=== PATIENT | female | born 1960 | race Caucasian/White ===

== ENCOUNTER → 2017-06-20 | Outpatient (CLI) | payer BC, OTHER ==
[~2017-06-20] MED LIST: AGM875T PO; AMLO5TAB2 PO; ASP81TEC PO; ATOR10TA PO; ATOR10TA66 PO; Atorvastatin Calcium PO; BENZ100C18 PO; BISO1TAB6 PO; CEFP250T2; EST.1TD TOP; ESTRADIOL TOP; HSCO125 SL; LEVO500T69 PO; LEVO75TA6 PO; LVT.025T PO; METH4TAB PO; OMEG-12 PO; PANT40TA PO; PANT40TA3 PO; PNT40TEC PO; PRD20T PO; SERT50TA; TICA90TA PO; TRAM50TA2 PO; Ticagrelor PO
--- NOTE | 2017-06-20 11:03 | Diagnostic Imaging Report ---
PROCEDURE: CT chest without contrast. TECHNIQUE: Multiple contiguous axial images were obtained through the chest without the use of intravenous contrast. INDICATION: Long-term tobacco use. FINDINGS: There are no discrete pulmonary nodules masses or infiltrates. There is no pleural or pericardial fluid. There is calcified granuloma in the right middle lobe. There is mild emphysematous disease. No pneumothorax. There are coronary artery calcifications. The thoracic aorta is nonaneurysmal. There is some atherosclerotic calcification of the aorta. There is no pathologically enlarged adenopathy in the chest. The visualized intra-abdominal structures are unremarkable. The osseous structures are unremarkable. IMPRESSION: Coronary artery calcifications. Calcified granuloma in the right lung. No acute abnormality in the chest. Dictated by: Dictated on workstation # [id number]
--- NOTE | 2017-06-20 11:08 | Diagnostic Imaging Report ---
INDICATION: Screening. COMPARISON: 06/09/2016 back through 01/11/2011. TECHNIQUE: Screening digital mammography was performed bilaterally with a Computer Aided Detection (CAD) System. FINDINGS: There is a moderate amount of residual fibroglandular tissue bilaterally. There are a few benign type calcifications. There is no dominant mass, spiculated lesion, or suspicious calcification identified. The skin, nipples, and axillae are unremarkable. IMPRESSION: Benign findings. ACR BI-RADS Category 2: Benign findings. Result letter will be mailed to the patient. Note: At least 10% of breast cancer is not imaged by mammography. Dictated by: Dictated on workstation # [id number]
== END ==
LOC: RAD 07:54
PROVIDERS: ATTEND Nurse Practitioner Family
DX: Z12.31 Encounter for screening mammogram for malignant neoplasm of breast (principal); I25.10 Atherosclerotic heart disease of native coronary artery without angina pectoris; Z72.0 Tobacco use
CPT/HCPCS: 71250; 77067

== ENCOUNTER → 2018-02-23 | Outpatient (CLI) | payer BC, OTHER ==
[~2018-02-23] MED LIST changes: -AMLO5TAB2 PO; +AMLO5TAB7 PO
== END ==
LOC: CARD 10:24
PROVIDERS: ATTEND Internal Medicine Cardiovascular Disease
DX: I44.0 Atrioventricular block, first degree (principal); I25.10 Atherosclerotic heart disease of native coronary artery without angina pectoris; R07.9 Chest pain, unspecified; I10 Essential (primary) hypertension; E78.1 Pure hyperglyceridemia
CPT/HCPCS: 93306

== ENCOUNTER → 2018-02-26 | Outpatient (CLI) | payer BC, OTHER ==
[~2018-02-26] VITALS: Ht 165.1 cm; Wt 60.3 kg
[~2018-02-26] MED LIST changes: +CATHETER FLUSH 10 ML SYR IV PRN
[2018-02-26 09:54] VITALS: BP 160/82
--- NOTE | 2018-02-26 12:59 | STRESS TEST ---
DATE OF SERVICE: 02/26/2018 [facility] MY[facility]IEW STRESS TEST REPORT REFERRING PHYSICIAN: Dr. Aquino. Baseline heart rate is 78. Baseline blood pressure 104/79. Baseline EKG sinus rhythm with no ischemic changes. In summary, the patient was injected with 10.39 mCi of technetium-99 Myoview and the resting images were obtained. Then, the patient started exercising with a baseline heart rate, blood pressure and EKG mentioned above. The patient was able to exercise for a total of 7 minutes on standard Pascual protocol. With peak exercise level, EKG was showing no ischemic changes. Blood pressure at peak exercise level was 168/81. During recovery, heart rate and blood pressure returned to baseline. The resting and stress images were reviewed and compared in the short axis, horizontal long axis, and vertical long axis views. Review of the images showed breast attenuation with mild decreased uptake at the mid to apical inferior wall with mild reversibility. SSS is 5, SDS 4, TID value 1.08. On the gated images, the left ventricle appeared to be normal size with normal contractility. Calculated ejection fraction 68%. CONCLUSION: 1. Fair exercise tolerance, a total of 7 minutes on standard Pascual protocol, total of 8.5 METS achieving 86% of maximum expected heart rate. 2. Appropriate heart rate and blood pressure response to exercise returned to baseline during recovery. 3. No EKG changes with exercise. 4. Breast attenuation with mild ischemia at the mid to apical inferior wall. 5. Normal left ventricular size with normal contractility. Calculated ejection fraction 68%. Job ID: [id number] DocumentID: [id number] Dictated Date: 02/26/2018 11:59:32 Track Maintainer Date: 02/26/2018 12:58:58 Dictated By: MI BAILEY MD
== END ==
LOC: CARD 07:41
PROVIDERS: ATTEND Internal Medicine Cardiovascular Disease
DX: I44.0 Atrioventricular block, first degree (principal); I25.10 Atherosclerotic heart disease of native coronary artery without angina pectoris; I10 Essential (primary) hypertension; R07.9 Chest pain, unspecified; E78.1 Pure hyperglyceridemia
CPT/HCPCS: 78452; 93017

== ENCOUNTER → 2018-03-19 | Outpatient (CLI) | payer BC, OTHER ==
[~2018-03-19] MED LIST changes: -CATHETER FLUSH 10 ML SYR IV PRN
--- NOTE | 2018-03-19 11:59 | Diagnostic Imaging Report ---
CLINICAL INDICATION: Patient with hypothyroidism. COMPARISONS: None. FINDINGS: THYROID NODULES: None. THYROID GLAND: The thyroid gland is slightly heterogeneous, but is normal in size and shape. The right lobe measures 3.8 cm x 1.5 cm x 1.4 cm and the left lobe measures 3.1 cm x 1.2 cm x 1.1 cm in their three dimensions. ISTHMUS: The isthmus is unremarkable and measures approximately 1-2 mm in thickness. IMPRESSION: Slightly heterogeneous thyroid gland. Otherwise, thyroid gland is unremarkable. There are no thyroid nodules. Dictated by: Dictated on workstation # [id number]
== END ==
LOC: RAD 10:06
PROVIDERS: ATTEND Nurse Practitioner Family
DX: E03.9 Hypothyroidism, unspecified (principal); R63.4 Abnormal weight loss
CPT/HCPCS: 76536

== ENCOUNTER → 2018-06-29 | Outpatient (CLI) | payer BC, OTHER ==
--- NOTE | 2018-06-29 11:00 | Diagnostic Imaging Report ---
INDICATION: Routine screening. COMPARISON: 06/20/2017 and 06/09/2016. TECHNIQUE: 2D and 3D bilateral screening mammography was performed with CAD. FINDINGS: Scattered fibroglandular densities are identified bilaterally. No mass or malignant appearing microcalcifications are seen. The axillae are unremarkable. IMPRESSION: No findings suspicious for malignancy are identified. ACR BI-RADS Category 1: Negative. Result letter will be mailed to the patient. Note: At least 10% of breast cancer is not imaged by mammography. Dictated by: Dictated on workstation # [id number]
== END ==
LOC: RAD 08:07
PROVIDERS: ATTEND Nurse Practitioner Family
DX: Z12.31 Encounter for screening mammogram for malignant neoplasm of breast (principal)
CPT/HCPCS: 77067

== ENCOUNTER 2018-07-04 07:30 | Day surgery (SDC) | payer BC, OTHER ==
[2018-07-04] VITALS (11 sets, daily range): BP systolic 114–139; BP diastolic 74–87
[~2018-07-04] VITALS: Ht 167.6 cm; Wt 54.4 kg
[~2018-07-04 07:30] MED LIST changes: -AMLO5TAB7 PO; +AMLO5TAB9 PO
[2018-07-04] MEDS ORDERED: LIDOCAINE 1% INJ 20 ML 20 ML VIAL ONE (07:39)
[2018-07-04] MEDS ORDERED: NS IV 1000 ML 1,000 ML ONE ×2 (07:39→08:46)
[2018-07-04] MEDS ORDERED: HEParin (CATH LAB) 2,000 ML IV ONE (07:39)
[2018-07-04] MEDS ORDERED: NS IV 1000 ML 1,000 ML IV SCH ×2 (07:41→10:58)
[2018-07-04 08:11] LABS: HEMOGLOBIN 14.5 G/DL (11.5-16.0); MEAN PLATELET VOLUME 9.8 FL (7.4-10.4); RED BLOOD COUNT 5.03 10^6/uL (4.35-5.85); RED CELL DISTRIBUTION WIDTH 14.6 % (10.0-14.5); WHITE BLOOD COUNT 7.3 10^3/uL (4.3-11.0)
[2018-07-04 08:17] LABS: PROTHROMBIN TIME PATIENT 12.8 SEC (12.2-14.7)
[2018-07-04 08:26] LABS: ALANINE AMINOTRANSFERASE 8 U/L (0-55); ALKALINE PHOSPHATASE 104 U/L (40-136); BILIRUBIN,TOTAL 0.7 MG/DL (0.1-1.0); BUN/CREATININE RATIO 11; CALCIUM 9.4 MG/DL (8.5-10.1); CARBON DIOXIDE 26 MMOL/L (21-32); CHLORIDE 103 MMOL/L (98-107); CHOLESTEROL 141 MG/DL (< 200); CREATININE SERUM 0.81 MG/DL (0.60-1.30); GFR ESTIMATED > 60; GLUCOSE 109 MG/DL (70-105); HDL CHOLESTEROL 33 MG/DL (40-60); POTASSIUM 3.9 MMOL/L (3.6-5.0); SODIUM 139 MMOL/L (135-145); TOTAL PROTEIN 7.2 GM/DL (6.4-8.2); TRIGLYCERIDES 108 MG/DL (<150); VLDL CHOLESTEROL 22 MG/DL (5-40)
[2018-07-04] MEDS ORDERED: RT-ALBUINH IH (08:29)
[2018-07-04] MEDS ORDERED: IPRA3AMP31 IH (08:29)
[2018-07-04] MEDS ORDERED: FLU QUADRIvalent (5+ YOA) 2018-2019 (AFLURIA) 0.5 ML IM ONE (08:30)
[2018-07-04] MEDS ORDERED: ESCI10TA55 PO (08:30)
--- NOTE | 2018-07-04 08:31 | NUR ---
SPOKE TO PATIENT SHE BROUGHT ALL HER HOME MEDICATIONS IN AND STATED WHEN SHE TOOK THEM LAST.
--- NOTE | 2018-07-04 08:38 | Diagnostic Imaging Report ---
INDICATION: Pre-heart catheterization. TIME OF EXAM: 8:06 AM Correlation is made with prior study from 05/18/2016. FINDINGS: The heart size is stable. Lungs are clear. The pulmonary vascularity is normal. No infiltrate, effusion or pneumothorax is identified. IMPRESSION: No acute cardiopulmonary process is detected. Dictated by: Dictated on workstation # [id number]
--- NOTE | 2018-07-04 08:46 | Cardiac Procedure Note-CS/ASA ---
Pre-Procedure Note Pre-Op Procedure Note H&P Reviewed The H&P was reviewed, patient examined and no changes noted. Date H&P Reviewed: Jul 04, 2018 Time H&P Reviewed: 08:46 Conscious Sedation Pre-Proced Time 08:46 ASA Score 3 For ASA 3 and 4: Consider anesthesia and medical clearance. Also, for patients with a history of failed moderate sedation consider anesthesia. Airway Lungs Heart ASA score ASA 1: a normal healthy patient ASA 2: a patient with a mild systemic disease (mid diabetes, controlled hypertension, obesity x ASA 3: a patient with a severe systemic disease that limits activity (angina , COPD, prior Myocardial infarction) ASA 4: a patient with an incapacitating disease that is a constant threat to life (CHF, renal failure) ASA 5: a moribund patient not expected to survive 24 hrs. (ruptured aneurysm) ASA 6: a declared brain patient whose organs are being harvested. For emergent operations, add the letter E after the classification Mallampati Classification Grade 3 Sedation Plan Analgesia, Amnesia, Plan communicated to team members, Discussed options with patient/fam, Discussed risks with patient/fam The patient is an appropriate candidate to undergo the planned procedure, sedation, and anesthesia. The patient immediately re-assessed prior to indication. MI BAILEY MD Jul 04, 2018 08:46
[2018-07-04] MEDS ORDERED: MIDAZOLAM 5 MG/5 ML (VERSED) VIAL ONE (10:10)
[2018-07-04] MEDS ORDERED: fentaNYL INJECTION 100 MCG/2 ML AMP ONE (10:11)
[2018-07-04] MEDS ORDERED: HEParin 1000 UNIT/ML (10ML VIAL) FOR BOLUS ONE (10:46)
[2018-07-04] MEDS ORDERED: ADENOSINE 3 MG/1 ML (ADENOSCAN) 30ML VIAL IV ONE (10:46)
[2018-07-04] MEDS ORDERED: RT-ALBUTEROL SULF 2.5 MG/3 ML PRE-MIX VIAL ONE (10:59)
[2018-07-04] MEDS ORDERED: PATIENT MAY USE OWN MEDS, ALL PO SCH (11:00)
--- NOTE | 2018-07-04 11:02 | Discharge Inst-Post CATH ---
Discharge Inst-CATH/EP Post Cardiac Cath/EP D/C Inst Follow Up/Plan Appointment with Dr. Bello's office in 2-4 weeks CARDIAC CATH DISCHARGE INSTRUCTIONS *Hold Metformin for 48 hours post heart cath. ACTIVITY * Go Home directly and rest. * Limit activity of the leg (or wrist if it was used) for 7 days including aerobics, swimming, jogging, bicycling, etc. * Restrict stair-climbing for 7 days if possible, if not, climb up with your non -cath leg, then bring together on the same step. * Avoid lifting, pushing, pulling or excessive movement of the affected extremity for 7 days. * Customary sexual activity may be resumed after 2 days-use caution not to use a position that strains or causes pain to the affected extremity. * No driving for 24 hours. * NO SMOKING. * Avoid straining for bowel movements for 7 days. * Gentle walking on level ground is allowed. * Returning to work will depend on the type of procedure and the results. Your doctor will discuss this with you. CALL YOUR DOCTOR FOR ANY OF THE FOLLOWING: *If bleeding from the puncture site occurs- Apply gentle pressure to site with clean cloth and call your doctor or EMS. * If a knot or lump forms under the skin, increases in size, or causes pain. * If bruising appears to be worsening or moving further down your leg instead of disappearing. * Temperature above 101 F. CARE OF YOUR GROIN INCISION; * Bruising or purple discoloration of the skin near the puncture site is common. * You may shower only, no bathtub bathing for 5 days. Be careful to avoid slipping as your leg may feel stiff. * If a closure device was used on your femoral artery, please see the attached guide regarding care of the device and your leg. * Leave the dressing on, until removed by office staff. CARE OF YOUR WRIST INCISION; * Bruising or purple discoloration of the skin near the puncture site is common. * You may shower. * DO NOT submerge wrist. * Leave dressing on, until removed by office staff.. MI BELLO MD Jul 04, 2018 11:02
--- NOTE | 2018-07-04 11:06 | Cardiac Cath Report ---
Cardiac Cath Report Physician (s)/T[employer] Mounter (s) Physician MI BAILEY MD Pre-Procedure Diagnosis Pre-Procedure Diagnosis: coronary artery disease Post-Procedure Note Procedure Start Date: Jul 04, 2018 Name of Procedure: coronary artery disease FFR to the right coronary artery Findings/Procedure Note PROCEDURE NOTE: After explaining the procedure to the patient, all pros and cons were explained , all questions were answered. The patient signed the consent and then she was placed on the cardiac catheterization laboratory. Groin was prepped SL fashion local anesthesia was used. Sheath placed in the right femoral artery. Ga right and left catheter were used to access the coronary system. Pigtail was used to access the left ventricular cavity. Left ventriculogram was not done, pressure was measured Patient was given 4000 units of heparin, had a lesion in the right Korri artery , I advanced FR guide then pressure wire was placed in the distal right coronary artery, I used Adenosine challenge, FFR at baseline and after the challenge was about 0.94. The wire and the guide was removed without any complication At the end of the procedure the sheath was removed. Closure device was used FINDINGS: Hemodynamics LV 97/8, end-diastolic pressure of 8 Aorta 97/57 mean of 71 ANATOMY: Left Main is free of obstructive disease Left Anterior Descending is [id number] disease nonobstructive disease Left Circumflex has patent stent in the obtuse marginal branch with mild disease distally nonobstructive disease Right Coronory Artery is small to moderate in size with moderate lesion, FFR was 0.94 after Adenosine a challenge LV Gram was not done, pressure was measured CONCLUSION: 1. Mild to moderate stenosis in the midright coronary artery, nonobstructive disease, FFR was 0.94 after Adenosine challenge 2. Mild to moderate disease in the LAD and circumflex artery with patent stent in the obtuse marginal branch 3. Normal left ventricular end-diastolic pressure DISCUSSION AND RECOMMENDATION: medical therapy is recommended no intervention is needed Anesthesia Type: Conscious Sedation Estimated blood loss (mL): 25 ml Contrast Amount: 68 ml Total Radiation Dose: 168 mGy Post-Procedure Diagnosis Post-operative diagnosis: Coronary artery disease Hypertension Hyperlipidemia MI BAILEY MD Jul 04, 2018 11:06
[2018-07-04] MEDS ORDERED: RT-ALBUTEROL SULF 2.5 MG/3 ML PRE-MIX VIAL INH SCH (11:30)
== END 2018-07-04 17:00 | disposition home or self-care (01) ==
LOC: CATH 07:30
PROVIDERS: ATTEND Internal Medicine Cardiovascular Disease
DX: I25.10 Atherosclerotic heart disease of native coronary artery without angina pectoris (principal); I10 Essential (primary) hypertension; E78.2 Mixed hyperlipidemia; E78.1 Pure hyperglyceridemia; I65.29 Occlusion and stenosis of unspecified carotid artery; F17.210 Nicotine dependence, cigarettes, uncomplicated; Z79.899 Other long term (current) drug therapy; Z79.82 Long term (current) use of aspirin; Z95.5 Presence of coronary angioplasty implant and graft
CPT/HCPCS: 36415; 71045; 80053; 80061; 85027; 85610; 85730; 87081; 93458

== ENCOUNTER → 2018-07-30 | Outpatient (CLI) | payer BC, OTHER ==
[~2018-07-30] MED LIST changes: +ESCI10TA55 PO; +IOHEXOL 350 MG/ML 100 ML (OMNIPAQUE 350) VIAL IV ONE; +IPRA3AMP31 IH; +NS 100 ML (IVPB) BAG IV ONE; +RECEIVED CONTRAST (Hold Metformin) IV SCH; +RT-ALBUINH IH; +RT-ALBUTEROL SULF 2.5 MG/3 ML PRE-MIX VIAL INH ONE
[2018-07-30 12:31] LABS: BUN/CREATININE RATIO 8; CREATININE SERUM 0.83 MG/DL (0.60-1.30); GFR ESTIMATED > 60
--- NOTE | 2018-07-30 14:59 | Diagnostic Imaging Report ---
PROCEDURE: CT chest with contrast only. TECHNIQUE: Multiple contiguous axial images were obtained through the chest after administration of intravenous contrast. INDICATION: Difficulty breathing and tobaccoism. Study correlated with nonenhanced chest CT of 06/20/2017. FINDINGS: Centrilobular emphysematous changes chronic. Calcified benign subpleural granuloma in the left upper lobe chronic. Minute 2 mm noncalcified subpleural nodule in the left upper lobe unchanged. No new dominant or suspicious pulmonary nodule. No evidence for pneumonia or edema. No effusion or pneumothorax. The aorta is nonaneurysmal. Coronary atherosclerotic vascular calcifications chronic. No pleural or pericardial effusion. The upper abdomen appears nonacute. IMPRESSION: Centrilobular emphysema, nonaneurysmal atherosclerosis, and benign subpleural micronodules stable. No suspicious mass, pneumonia, effusion, or acute abnormality. Dictated by: Dictated on workstation # [id number]
== END ==
LOC: RAD 11:58
PROVIDERS: ATTEND Nurse Practitioner Family
DX: J43.2 Centrilobular emphysema (principal); I25.10 Atherosclerotic heart disease of native coronary artery without angina pectoris; R91.8 Other nonspecific abnormal finding of lung field; F17.200 Nicotine dependence, unspecified, uncomplicated; J98.4 Other disorders of lung; J18.9 Pneumonia, unspecified organism
CPT/HCPCS: 36415; 71260; 82565; 84520; 94060; 94726; 94729

== ENCOUNTER → 2019-02-26 | Outpatient (CLI) | payer BC, OTHER ==
[~2019-02-26] MED LIST changes: -IOHEXOL 350 MG/ML 100 ML (OMNIPAQUE 350) VIAL IV ONE; -NS 100 ML (IVPB) BAG IV ONE; -RECEIVED CONTRAST (Hold Metformin) IV SCH; -RT-ALBUTEROL SULF 2.5 MG/3 ML PRE-MIX VIAL INH ONE
--- NOTE | 2019-02-26 17:14 | Diagnostic Imaging Report ---
INDICATION: Postmenopausal female. COMPARISON: None. FINDINGS: AP Spine L1-L4: [BMD (g/cm2): 1.230] [T-Score: 0.2] [Z-Score: 1.8] [BMD Previous: N/A] [BMD % Change: N/A] LT Hip Neck: [BMD (g/cm2): 1.157] [T-Score: 0.9] [Z-Score: 2.3] LT Hip Total: [BMD (g/cm2):1.121] [T-Score:0.9] [Z-Score: 2.1] [BMD Previous: N/A] [BMD % Change: N/A] RT Hip Neck: [BMD (g/cm2):1.027] [T-Score:-0.1] [Z-Score:1.4] RT Hip Total: [BMD (g/cm2):1.048] [T-score:0.3] [Z-Score:1.5] [BMD Previous:N/A] [BMD % Change:N/A] *Indicates significant change from prior examination based on 95% confidence level. World Health Organization criteria for BMD interpretation classify patients as Normal (T-score at or above -1.0), Osteopenic (T-score between -1.0 and -2.5) or Osteoporotic (T-score at or below -2.5). LIMITATIONS AND MODIFICATION: None. FRACTURE RISK (FRAX SCORE): Not applicable IMPRESSION: 1. Normal Bone mineral density. 2. Baseline examination. 3. See below National Osteoporosis Foundation guidelines on when to potentially initiate pharmacologic therapy. Based on the National Osteoporosis Foundation Guidelines, pharmacologic treatment should be initiated in any of the following, unless clinical conditions suggest otherwise: * Any patient with prior fragility fracture of the hip or vertebrae. A spine fracture indicates 5X risk for subsequent spine fracture and 2X risk for subsequent hip fracture. * Osteoporosis (T-score <-2.5). * Postmenopausal women and men age 50 and older with low bone mass/osteopenia (T-score between -1.0 and -2.5) by DXA and 10-year major osteoporotic fracture greater than 20% or a 10-year probability of hip fracture greater than 3%. These fracture risks are supplied above in the FRAX score, if applicable. * Clinician judgement and/or patient preferences may indicate treatment for people with 10-year fracture probabilities above or below these levels. Dictated by: Dictated on workstation # [id number]
== END ==
LOC: RAD 10:01
PROVIDERS: ATTEND Orthopaedic Surgery
DX: M81.0 Age-related osteoporosis without current pathological fracture (principal); Z78.0 Asymptomatic menopausal state
CPT/HCPCS: 77080

== ENCOUNTER 2019-04-02 16:06 | Observation (INO) | payer BC, OTHER ==
[~2019-04-02] VITALS: Ht 167.7 cm; Wt 56.0 kg
[2019-04-02] MEDS ORDERED: RT-ALBUTEROL/IPRATROPIUM 3 ML (DUONEB) VIAL ONE (16:16)
[2019-04-02 16:40] LABS: BASOPHILS # (AUTO) 0.1 10^3/uL (0.0-0.1); BASOPHILS % (AUTO) 0 % (0-10); EOSINOPHILS # (AUTO) 0.3 10^3/uL (0.0-0.3); EOSINOPHILS % (AUTO) 2 % (0-10); HEMATOCRIT 45 % (35-52); HEMOGLOBIN 15.1 G/DL (11.5-16.0); LYMPHOCYTES # (AUTO) 2.8 X 10^3 (1.0-4.0); LYMPHOCYTES % (AUTO) 17 % (12-44); MEAN CORPUSCULAR HEMOGLOBIN 30 PG (25-34); MEAN CORPUSCULAR HGB CONC 34 G/DL (32-36); MEAN CORPUSCULAR VOLUME 89 FL (80-99); MONOCYTES # (AUTO) 0.7 X 10^3 (0.0-1.0); MONOCYTES % (AUTO) 4 % (0-12); NEUTROPHILS # (AUTO) 12.7 X 10^3 (1.8-7.8); NEUTROPHILS % (AUTO) 77 % (42-75); PLATELET COUNT 363 10^3/uL (130-400); RED CELL DISTRIBUTION WIDTH 14.4 % (10.0-14.5); WHITE BLOOD COUNT 16.6 10^3/uL (4.3-11.0)
[2019-04-02 16:57] LABS: ALANINE AMINOTRANSFERASE 12 U/L (0-55); ALBUMIN 4.2 GM/DL (3.2-4.5); ALKALINE PHOSPHATASE 133 U/L (40-136); BILIRUBIN,TOTAL 0.5 MG/DL (0.1-1.0); BUN/CREATININE RATIO 10; CALCIUM 9.8 MG/DL (8.5-10.1); CARBON DIOXIDE 25 MMOL/L (21-32); CHLORIDE 100 MMOL/L (98-107); CREATININE SERUM 0.82 MG/DL (0.60-1.30); GFR ESTIMATED > 60; GLUCOSE 122 MG/DL (70-105); POTASSIUM 3.7 MMOL/L (3.6-5.0); SODIUM 139 MMOL/L (135-145); TOTAL PROTEIN 7.6 GM/DL (6.4-8.2)
--- NOTE | 2019-04-02 17:02 | Diagnostic Imaging Report ---
INDICATION: Difficulty breathing and shortness of air with chest pain. TIME OF EXAM: 04:55 p.m. Correlation is made with prior chest from 07/04/2018. FINDINGS: There is a tiny nodule in the left upper lung suggestive of a granuloma. No infiltrates are detected. No effusion or pneumothorax is seen. The heart size is normal. IMPRESSION: No acute cardiopulmonary process is detected. Dictated by: Dictated on workstation # [id number]
[2019-04-02 17:24] LABS: BAND NEUTROPHILS 4 %; EOSINOPHILS % (MANUAL) 1 %; LYMPHOCYTES % (MANUAL) 18 %; MONOCYTES % (MANUAL) 4 %; NEUTROPHILS % (MANUAL) 73 %; RBC MORPH NORMAL
[2019-04-02] MEDS ORDERED: methylPREDNISolone 125 MG (Solu-MEDROL) VIAL IVP ONE (17:45)
--- NOTE | 2019-04-02 17:48 | ED Cough/URI ---
General Chief Complaint: Respiratory Problems Stated Complaint: SOA CHEST PAIN Nursing Triage Note: Pt c/o SOA and CP that began this morning. Pt also c/o productive cough. Mucous is thick and yellow. 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 Pt R arm in brace pt reports due to recent surgery. Sepsis Screen: No Definite Risk Source: patient, family Exam Limitations: no limitations History of Present Illness Date Seen by Provider: Apr 02, 2019 Time Seen by Provider: 16:00 Initial Comments This 58-year-old white female presents with history of productive cough of yellow sputum. Patient's symptoms again this morning. Patient has had associated shortness of breath. Her chest hurts when she coughs. Patient is using multiple breathing treatments prior to presentation Jensen Ricardo with little improvement. Patient states that she requires steroids when her COPD is exacerbated as it is today. Allergies and Home Medications Allergies Coded Allergies: Cephalosporins (Verified Allergy, Severe, EDEMA, 07/21/14) tetracycline (Verified Allergy, Unknown, SUN STROKE, 07/21/14) Home Medications Albuterol Sulfate 1 Puff Puff, 2 PUFF IH Q4H PRN for SHORTNESS OF BREATH, (Reported) 1 PUFF = 90 MCG Amlodipine Besylate 5 Mg Tablet, 5 MG PO HS, (Reported) Aspirin 81 Mg Tabec, 81 MG PO HS, (Reported) Atorvastatin Calcium 10 Mg Tablet, 10 MG PO HS, (Reported) Escitalopram Oxalate 10 Mg Tablet, 5 MG PO HS, (Reported) Ipratropium/Albuterol Sulfate 3 Ml Ampul.neb, 3 ML IH Q6H PRN for SHORTNESS OF BREATH, (Reported) Levothyroxine Sodium 75 Mcg Tablet, 75 MCG PO DAILY, (Reported) Pantoprazole Sodium 40 Mg Tablet.dr, 40 MG PO HS, (Reported) Patient Home Medication List Home Medication List Reviewed: Yes Review of Systems Review of Systems Constitutional: No chills, No fever EENTM: no symptoms reported Respiratory: see HPI, cough, short of breath Cardiovascular: No chest pain, No palpitations Gastrointestinal: No abdominal pain, No nausea Genitourinary: No dysuria, No frequency Musculoskeletal: No back pain Skin: No change in color Psychiatric/Neurological: No Symptoms Reported Hematologic/Lymphatic: No Symptoms Reported Immunological/Allergic: no symptoms reported Past Xjgrgyv-Jiznos-Cjfevd Hx Past Med/Social Hx: Reviewed Nursing Past Med/Soc Hx Patient Social History Alcohol Use: Rarely Uses Number of Drinks Today: Alcohol Beverage of Choice: Wine Recreational Drug Use: No Smoking Status: Current Everyday Smoker Type Used: Cigarettes Recent Foreign Travel: No Contact w/Someone Who Travel: No Recent Infectious Disease Expo: No Physical Abuse: No Sexual Abuse: No Immunizations Up To Date Date of Pneumonia Vaccine: Jun 12, 2011 Date of Influenza Vaccine: Mar 12, 2014 Seasonal Allergies Seasonal Allergies: No Past Medical History Surgeries: Yes (CATH AND STENT, L KNEE SCOPE, LEFT ARM SHORTENED, LEFT TOE, right shoulder) Adenoidectomy, Appendectomy, Coronary Stent, Gallbladder, Hysterectomy, Orthopedic, Tonsillectomy Respiratory: Yes COPD Cardiac: Yes Coronary Artery Disease, Hypertension Neurological: No Reproductive Disorders: No Female Reproductive Disorders: Denies Sexually Transmitted Disease: No HIV/AIDS: No Genitourinary: No Gastrointestinal: Yes Diverticulosis Musculoskeletal: No Endocrine: Yes (THYROID PROBLEMS) Cancer: Yes (skin) Did You Recieve Any Treatments: No Psychosocial: No Integumentary: No Blood Disorders: No Family Medical History Stroke 03 MOTHER No Pertinent Family Hx Physical Exam Vital Signs - First Documented 04/02/19 16:06 Temp 36.8 Pulse 107 Resp 30 B/P (MAP) 123/82 (96) Pulse Ox 82 O2 Delivery Room Air O2 Flow Rate 5.00 Capillary Refill : Less Than 3 Seconds Height: 5'6.00" Weight: 120lbs. 0.0oz. [id number]; 19.00 BMI Method:Stated General Appearance: mild distress, cachetic Eyes: Bilateral Eye Normal Inspection HEENT: normal ENT inspection Neck: supple Respiratory: decreased breath sounds Cardiovascular: regular rate, rhythm Gastrointestinal: normal bowel sounds Extremities: normal range of motion, non-tender Neurologic/Psychiatric: no motor/sensory deficits, normal mood/affect Skin: normal color, warm/dry Progress/Results/Core Measures Suspected Sepsis Recent Fever Within 48 Hours: No Infection Criteria Present: None New/Unexplained Altered Menta: No Sepsis Screen: No Definite Risk SIRS Temperature: Pulse: 107 Respiratory Rate: 30 Laboratory Tests 04/02/19 16:20: White Blood Count 16.6H Blood Pressure 123 /82 Mean: 96 Laboratory Tests 04/02/19 16:20: Creatinine 0.82, Platelet Count 363, Total Bilirubin 0.5 Results/Orders Lab Results Laboratory Tests Test 04/02/19 16:20 Range/Units White Blood Count 16.6 H 4.3-11.0 10^3/uL Red Blood Count 5.01 4.35-5.85 10^6/uL Hemoglobin 15.1 11.5-16.0 G/DL Hematocrit 45 35-52 % Mean Corpuscular Volume 89 80-99 FL Mean Corpuscular Hemoglobin 30 25-34 PG Mean Corpuscular Hemoglobin Concent 34 32-36 G/DL Red Cell Distribution Width 14.4 10.0-14.5 % Platelet Count 363 130-400 10^3/uL Mean Platelet Volume 10.0 7.4-10.4 FL Neutrophils (%) (Auto) 77 H 42-75 % Lymphocytes (%) (Auto) 17 12-44 % Monocytes (%) (Auto) 4 0-12 % Eosinophils (%) (Auto) 2 0-10 % Basophils (%) (Auto) 0 0-10 % Neutrophils # (Auto) 12.7 H 1.8-7.8 X 10^3 Lymphocytes # (Auto) 2.8 1.0-4.0 X 10^3 Monocytes # (Auto) 0.7 0.0-1.0 X 10^3 Eosinophils # (Auto) 0.3 0.0-0.3 10^3/uL Basophils # (Auto) 0.1 0.0-0.1 10^3/uL Neutrophils % (Manual) 73 % Lymphocytes % (Manual) 18 % Monocytes % (Manual) 4 % Eosinophils % (Manual) 1 % Band Neutrophils 4 % Blood Morphology Comment NORMAL Sodium Level 139 135-145 MMOL/L Potassium Level 3.7 3.6-5.0 MMOL/L Chloride Level 100 98-107 MMOL/L Carbon Dioxide Level 25 21-32 MMOL/L Anion Gap 14 5-14 MMOL/L Blood Urea Nitrogen 8 7-18 MG/DL Creatinine 0.82 0.60-1.30 MG/DL Estimat Glomerular Filtration Rate > 60 BUN/Creatinine Ratio 10 Glucose Level 122 H 70-105 MG/DL Calcium Level 9.8 8.5-10.1 MG/DL Corrected Calcium 9.6 8.5-10.1 MG/DL Total Bilirubin 0.5 0.1-1.0 MG/DL Aspartate Amino Transf (AST/SGOT) 11 5-34 U/L Alanine Aminotransferase (ALT/SGPT) 12 0-55 U/L Alkaline Phosphatase 133 40-136 U/L Total Protein 7.6 6.4-8.2 GM/DL Albumin 4.2 3.2-4.5 GM/DL My Orders Orders - ASHELY MORILLO MD Albuterol/Ipra Inhalation Soln (Duoneb I (04/02/19 16:16) Cbc With Automated Diff (04/02/19 16:35) Comprehensive Metabolic Panel (04/02/19 16:35) Chest 1 View, Ap/Pa Only (04/02/19 16:35) Manual Differential (04/02/19 16:20) Methylprednisolone Sod Succ (Solu-Medrol (04/02/19 17:45) Medications Given in ED Current Medications Medications Dose Ordered Sig/Gerry Route Start Time Stop Time Status Last Admin Dose Admin Albuterol/ Ipratropium 3 ml STK-MED ONCE .ROUTE 04/02/19 16:16 04/02/19 16:17 DC 04/02/19 16:19 3 ML Vital Signs/I&O 04/02/19 04/02/19 04/02/19 16:06 16:06 16:19 Temp 36.8 Pulse 107 Resp 30 B/P (MAP) 123/82 (96) Pulse Ox 82 94 95 O2 Delivery Room Air Nasal Cannula Nasal Cannula O2 Flow Rate 5.00 5.00 Capillary Refill : Less Than 3 Seconds Blood Pressure Mean: 96 Progress Note : Time: 17:47 Progress Note The patient was somewhat improved with a.m. DuoNeb treatment. She received 125 mg of Solu-Medrol. She received 500 mg of Zithromax IV. Patient's chest x-ray failed to demonstrate evidence of acute infiltrate. The patient was seen improved with her supplemental oxygen and treatment in the emergency department. I talked with Dr. Evans who was kind enough to admit the patient. Departure Communication (Admissions) Time/Spoke to Admitting Phy: 17:49 Dr. Evans Impression Primary Impression: Acute exacerbation of COPD with asthma Disposition: ADMITTED INPATIENT Condition: Improved Admissions Decision to Admit Reason: Admit from ER (General) Decision to Admit/Date: Apr 02, 2019 Time/Decision to Admit Time: 17:49 Departure-Patient Inst. Referrals: PATTI HATFIELD DO (PCP/Family) Primary Care Physician ASHELY MORILLO MD Apr 02, 2019 17:48
[2019-04-02 19:35] VITALS: BP 128/76
--- NOTE | 2019-04-02 19:35 | NUR ---
RISA HI admitted to room 416-1, with an admitting diagnosis of COPD EXACERBATION, on 04/02/19 from [place] via WHEELCHAIR, accompanied by STAFF.RISA HI introduced to surroundings, call light, bed controls, phone, TV, temperature control, lights, meal times, smoking policy, visitor policy, side rail policy, bathrooms and showers. Patient Rights given to patient in the handbook. RISA HI verbalizes understanding that [facility] is not responsible for the loss or damage to any personal effects or valuables that are kept in the patients posession during their hospitalization.
[2019-04-02] MEDS ORDERED: NS IV 1000 ML 1,000 ML ONE (19:44)
[2019-04-02] MEDS ORDERED: CATHETER FLUSH 10 ML SYR IV PRN (20:00)
[2019-04-02] MEDS ORDERED: RT-ALBUTEROL/IPRATROPIUM 3 ML (DUONEB) VIAL IH PRN ×2 (20:00)
[2019-04-02] MEDS ORDERED: AZITHROMYCIN 500 MG/NS 250 ML IVPB IV SCH ×2 (20:00)
[2019-04-02] MEDS ORDERED: NS IV 1000 ML 1,000 ML IV SCH (20:00)
[2019-04-03] VITALS (7 sets, daily range): BP systolic 112–125; BP diastolic 60–77
[2019-04-03] MEDS: methylPREDNISolone 125 MG (Solu-MEDROL) VIAL IV SCH ×2 (00:10→06:40)
[2019-04-03] MEDS: RT-ALBUTEROL/IPRATROPIUM 3 ML (DUONEB) VIAL IH SCH ×6 (03:04→22:35)
[2019-04-03 05:38] LABS: BASOPHILS % (AUTO) 0 % (0-10); EOSINOPHILS % (AUTO) 0 % (0-10); HEMATOCRIT 44 % (35-52); HEMOGLOBIN 14.5 G/DL (11.5-16.0); LYMPHOCYTES # (AUTO) 0.7 X 10^3 (1.0-4.0); LYMPHOCYTES % (AUTO) 7 % (12-44); MEAN CORPUSCULAR HEMOGLOBIN 30 PG (25-34); MEAN CORPUSCULAR HGB CONC 33 G/DL (32-36); MEAN CORPUSCULAR VOLUME 90 FL (80-99); MEAN PLATELET VOLUME 10.1 FL (7.4-10.4); MONOCYTES % (AUTO) 0 % (0-12); NEUTROPHILS # (AUTO) 9.8 X 10^3 (1.8-7.8); NEUTROPHILS % (AUTO) 93 % (42-75); PLATELET COUNT 301 10^3/uL (130-400); RED CELL DISTRIBUTION WIDTH 13.9 % (10.0-14.5); WHITE BLOOD COUNT 10.6 10^3/uL (4.3-11.0)
[2019-04-03 06:06] LABS: ALANINE AMINOTRANSFERASE 11 U/L (0-55); ALKALINE PHOSPHATASE 141 U/L (40-136); BILIRUBIN,TOTAL 0.4 MG/DL (0.1-1.0); BUN/CREATININE RATIO 13; CALCIUM 9.4 MG/DL (8.5-10.1); CARBON DIOXIDE 25 MMOL/L (21-32); CHLORIDE 103 MMOL/L (98-107); CREATININE SERUM 0.72 MG/DL (0.60-1.30); GFR ESTIMATED > 60; GLUCOSE 207 MG/DL (70-105); POTASSIUM 3.7 MMOL/L (3.6-5.0); SODIUM 139 MMOL/L (135-145)
[2019-04-03] MEDS ORDERED: RT-ALBUINH INH (09:44)
[2019-04-03] MEDS ORDERED: ALBU2.5V4 NEB (09:44)
[2019-04-03] MEDS ORDERED: TERI202.4P SC (09:44)
[2019-04-03] MEDS ORDERED: FLUT1BLS3 INH (09:44)
[2019-04-03] MEDS ORDERED: CNC1KV IM (09:47)
[2019-04-03] MEDS ORDERED: CHOL20003 PO (09:47)
[2019-04-03] MEDS ORDERED: CALC-676 PO (09:48)
[2019-04-03] MEDS ORDERED: ASPI-983 PO (09:51)
[2019-04-03] MEDS ORDERED: LEVO75TA6 PO (09:59)
[2019-04-03] MEDS ORDERED: ATOR20TA66 PO (09:59)
--- NOTE | 2019-04-03 10:01 | NUR ---
SPOKE WITH THE PATIENT ABOUT HER MEDICATIONS. SHE KNOWS WHAT SHE TAKES EACH MEDICATION FOR BUT SHE DOES NOT KNOW THE NAME OF THE MED OR THE STRENGTH. SHE LISTED WHAT SHE TAKES, I COMPARED THEM WITH WHAT CLAUDIO FILLS ON THE EXT MED HX. 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 I CALLED DR. CRUZ'S OFFICE FOR A LIST OF THOSE MEDICATIONS. ON SITE: 03-06-19 ATORVASTATIN 20MG (TAKES AT HS, WAS INCREASED FROM 10MG) 03-06-19 PROTONIX 40MG 1/2 DAILY (TAKES AT HS) 03-06-19 LEVOTHYROXINE 75MCG DAILY 03-06-19 B12 INJECTION (WAS SUPPOSED TO RECEIVE AGAIN TODAY BUT IS IN HOSPITAL) 01-30-19 AMLODIPINE 5MG DAILY (TAKES AT HS) THEY STATE THEY NORMALLY DISPENSE 90 DAY SUPPLIES OTC MEDS: ASPIRIN 81MG HS VITAMIN D DAILY CALCIUM +D 2 HS
[2019-04-03] MEDS ORDERED: PATIENT MAY USE OWN MED,SINGLE MED PO SCH (10:45)
--- NOTE | 2019-04-03 11:13 | History & Physical-Hospitalist ---
History of Present Illness HPI/Chief Complaint Pt is a 58yoCF with a PMH of COPD, CAD, HTN, HLD who presented to the ER with a CC of shortness of breath and cough. She states this is similar to her previous episodes of COPD. She has never needed to be hospitalized due to this. She was found to be hypoxic on arrival to the ER despite attempting home breathing treatments. She was placed on oxygen and started on IV steroids and her symptoms have improved dramatically. She has not been febrile but her has been sick with a cold. She also continues to smoke 1ppd. Source: patient Date Seen 04/03/19 Time Seen by a Provider: 10:30 Attending Physician Maria Del Rosario Evans MD PCP Marin Aquino DO Referring Physician Date of Admission Apr 02, 2019 at 17:40 Home Medications & Allergies Home Medications Reviewed patient Home Medication Reconciliation performed by pharmacy medication reconciliations master fire control technician and/or nursing. Patients Allergies have been reviewed. Allergies Allergies Coded Allergies Cephalosporins (Verified Allergy, Severe, EDEMA, 07/21/14) tetracycline (Verified Allergy, Unknown, SUN STROKE, 07/21/14) Past Rbmntlx-Syzdcf-Oaasin Hx Past Med/Social Hx: Reviewed Nursing Past Med/Soc Hx Patient Social History Marrital Status: Employed/Student: employed Alcohol Use: Rarely Uses Alcohol Beverage of Choice: Wine Recreational Drug Use: No Smoking Status: Current Everyday Smoker Type Used: Cigarettes Recent Foreign Travel: No Contact w/other who traveled: No Recent Infectious Disease Expo: No Immunizations Up To Date Date of Pneumonia Vaccine: Jun 12, 2011 Date of Influenza Vaccine: Mar 29, 2019 Seasonal Allergies Seasonal Allergies: No Past Medical History Surgeries: Adenoidectomy, Appendectomy, Coronary Stent, Gallbladder, Hysterectomy, Orthopedic, Tonsillectomy Cardiac: Coronary Artery Disease, Hypertension Reproductive: No Sexually Transmitted Disease: No HIV/AIDS: No Female Reproductive Disorders: Denies Gastrointestinal: Diverticulosis Did You Recieve Any Treatments: No History of Blood Disorders: No Family History Reviewed Nursing Family Hx Stroke 03 MOTHER CVA, Renal Disease Review of Systems Constitutional: No chills, No fever EENTM: no symptoms reported Respiratory: cough, dyspnea on exertion; No hemoptysis; phlegm, short of breath, wheezing Cardiovascular: chest pain (with coughing) Gastrointestinal: no symptoms reported Genitourinary: no symptoms reported Musculoskeletal: no symptoms reported Skin: no symptoms reported Psychiatric/Neurological: No Symptoms Reported Physical Exam Physical Exam Vital Signs Vital Signs - First Documented 04/02/19 16:06 Temp 36.8 Pulse 107 Resp 30 B/P (MAP) 123/82 (96) Pulse Ox 82 O2 Delivery Room Air O2 Flow Rate 5.00 Capillary Refill : Less Than 3 SecondsLess Than 3 Seconds Height, Weight, BMI Height: 5'6.00" Weight: 120lbs. 0.0oz. 54.652143ea; 19.52 BMI Method:Stated General Appearance: No Apparent Distress, WD/WN HEENT: PERRL/EOMI, Moist Mucous Membranes; No Scleral Icterus (L), No Scleral Icterus (R) Neck: Normal Inspection, Supple Respiratory: No Accessory Muscle Use, No Respiratory Distress, Wheezing Cardiovascular: Regular Rate, Rhythm, No Murmur Gastrointestinal: Normal Bowel Sounds, Non Tender, Soft Extremity: Normal Capillary Refill, No Calf Tenderness, No Pedal Edema Neurologic/Psychiatric: Alert, Oriented x3, Normal Mood/Affect Skin: Normal Color, Warm/Dry Results Results/Procedures Labs Laboratory Tests 04/02/19 16:20 04/03/19 04:40 Patient resulted labs reviewed. Imaging: Reviewed Imaging Report Imaging Date of Exam: 04/02/19 CHEST 1 VIEW, AP/PA ONLY INDICATION: Difficulty breathing and shortness of air with chest pain. TIME OF EXAM: 04:55 p.m. Correlation is made with prior chest from 07/04/2018. FINDINGS: There is a tiny nodule in the left upper lung suggestive of a granuloma. No infiltrates are detected. No effusion or pneumothorax is seen. The heart size is normal. IMPRESSION: No acute cardiopulmonary process is detected. Assessment/Plan Admission Diagnosis COPD Acute Exacerbation Admission Status: Observation Assessment and Plan COPD Acute Exacerbation Continue steroids MAT protocol Azithromycin due to leukocytosis Wean oxygen as able HTN Well controlled Hypothyroidism Continue home supplement HLD Continue statin Osteoporosis Can take home Forteo DVT: SCDs Diagnosis/Problems Diagnosis/Problems (1) Essential (primary) hypertension (2) HLD (hyperlipidemia) (3) CAD (coronary artery disease) (4) Hypothyroidism (5) Osteoporosis (6) COPD exacerbation Clinical Quality Measures DVT/VTE Risk/Contraindication: Risk Factor Score Per Nursin RFS Level Per Nursing on Admit: 4+=Very High Smoking Cessation Counseling: Counseling-Symptomatic: 3-10 Minutes MARIA DEL ROSARIO EVANS MD Apr 03, 2019 11:12
[2019-04-03] MEDS ORDERED: NON-FORMULARY MEDICATION 1 EA EA (Fluticasone/Umeclidin/Vilanter (Trelegy Ellipta 100-62.5 INH SCH (12:00)
--- NOTE | 2019-04-03 15:17 | NUR ---
RD ASSESSMENT PMHx: CAD; HTN; CA(skin); COPD; diverticulosis PT INTERACTION: Pt was awake and pleasant during consult for MST score. Pt states current appetite is good, but had been poor prior to admission. Pt states following a regular diet at home, and has no recent issues with chewing/swallowing at this time. Pt states no recent issues with n/v at this time. Pt states no recent issues with constipation or diarrhea, and last BM was 04/02, per chart review. Pt states approx 40# wt loss over the past year. Note unable to determine recent wt hx, per chart review. Upon visual exam, pt appears to have some muscle wasting in the arms, and a normal BMI of 19.5. Given pt's appearance and PO intake (75%), pt is not at risk for malnutrition per ASPEN guidelines. ABNORMAL NUTRITION-RELATED LAB VALUES: glu 207 (H); Alkphos 141 (H) Est. kcal needs: 0628-3808 kcal (25-30 kcal/kg) Est. Pro needs: 66-77 g Pro (1.2-1.4 g Pro/kg) PES STATEMENT: Inadequate oral intake (NI-2.1) related to loss of appetite as evidenced by pt interview INTERVENTION: Continue with current diet order of Regular diet. Pt may benefit from nutrition supplementation if po intake declines. MONITOR/EVALUATE: PO Intake; Plan of Care; Hydration Status; Weight Status; Lab Values Magali Cherry, MS, RD, LD Ext. [phone]
--- NOTE | 2019-04-03 17:49 | Diagnostic Imaging Report ---
INDICATION: COPD exacerbation, issues with breathing. EXAMINATION: Two-view chest from 04/03/2019. COMPARISON: 04/02/2019. FINDINGS: Two views of the chest demonstrate mild hyperinflation of the lungs with chronic-appearing changes bilaterally. No infiltrates, effusions, or pneumothorax. Heart and pulmonary vasculature are stable. IMPRESSION: 1. Chronic findings. No acute process. Dictated by: Dictated on workstation # [id number]
[2019-04-03] MEDS ORDERED: ASPIRIN E.C. 81 MG (ECOTRIN) TAB PO SCH (21:00)
[2019-04-03] MEDS ORDERED: PANTOPRAZOLE 20 MG TABLET (PROTONIX) PO SCH (21:00)
[2019-04-03] MEDS ORDERED: AZITHROMYCIN 250 MG TAB (ZITHROMAX) PO SCH (21:00)
[2019-04-04] MEDS: RT-ALBUTEROL/IPRATROPIUM 3 ML (DUONEB) VIAL IH SCH ×5 (03:29→13:31)
[2019-04-04 03:45] VITALS: BP 111/62
[2019-04-04] MEDS ORDERED: predniSONE 20 MG TAB PO SCH (07:00)
[2019-04-04 08:00] VITALS: BP 103/68
[2019-04-04] MEDS ORDERED: LEVOTHYROXINE 75 MCG (LEVOTHROID) TABLET PO SCH (09:00)
--- NOTE | 2019-04-04 09:27 | Discharge Summary ---
Diagnosis/Chief Complaint Date of Admission Apr 02, 2019 at 17:40 Date of Discharge Admission Diagnosis COPD Acute Exacerbation Primary Care Patti Aquino DO Discharge Diagnosis (1) Essential (primary) hypertension (2) HLD (hyperlipidemia) (3) CAD (coronary artery disease) (4) Hypothyroidism (5) Osteoporosis (6) COPD exacerbation Discharge Summary Discharge Physical Exam Allergies: Coded Allergies: Cephalosporins (Verified Allergy, Severe, EDEMA, 07/21/14) tetracycline (Verified Allergy, Unknown, SUN STROKE, 07/21/14) Vitals & I&Os Vital Signs Date Time Temp Pulse Resp B/P (MAP) Pulse Ox O2 Delivery O2 Flow Rate FiO2 04/04/19 16:15 37.0 88 20 110/67 96 Nasal Cannula 2.00 General Appearance: No Apparent Distress, WD/WN Respiratory: Lungs Clear, No Respiratory Distress Cardiovascular: Regular Rate, Rhythm, No Murmur Gastrointestinal: Normal Bowel Sounds, Soft Neurologic/Psychiatric: Alert, Oriented x3 Hospital Course Pt was admitted for an acute COPD exacerbation. She was found to be hypoxic and required supplemental oxygen, IV steroids, and frequent SVNs to improve oxygenation. She responded well to therapy and had an uneventful hospital stay. 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 She was tested for home oxygen by RT and was found need 2lpm at rest and 4lpm with exertion. This was arranged and a referral was made to pulmonary rehab upon discharge. Labs (last 24 hrs) Patient resulted labs reviewed. Imaging: Reviewed Imaging Report Discussion & Recommendations Discharge Planning: >30 minutes discharge planning Discharge Home Medications: Active Scripts Active Prednisone 20 Mg Tab 40 Mg PO DAILY@0700 Azithromycin 250 Mg Tablet 250 Mg PO HS Reported Atorvastatin Calcium 20 Mg Tablet 20 Mg PO HS Levothyroxine Sodium 75 Mcg Tablet 75 Mcg PO DAILY Aspirin EC (Aspirin) 81 Mg Tablet.dr 81 Mg PO HS Calcium 500 + Vit D 200 Caplet (Calcium Carbonate/Vitamin D3) 1 Each Tablet 2 Tab PO HS Cyanocobalamin Injection (Cyanocobalamin) 1,000 Mcg/Ml Inj 1,000 Mcg IM MONTHLY Vitamin D3 (Cholecalciferol (Vitamin D3)) 2,000 Unit Capsule 2,000 Unit PO DAILY Trelegy Ellipta 100-62.5-25 (Fluticasone/Umeclidin/Vilanter) 1 Each Blst.w.dev 1 Puff INH 1200 Albuterol Sulfate 2.5 Mg/3 Ml Vial.neb 2.5 Mg NEB Q4H PRN Forteo (Teriparatide) 600 Mcg/2.4 Ml Syr 20 Mcg SC 1730 Ventolin Hfa (Albuterol Sulfate) 1 Puff Puff 2 Puff INH Q4H PRN 1 PUFF = 90 MCG Amlodipine Besylate 5 Mg Tablet 5 Mg PO HS Pantoprazole Sodium 40 Mg Tablet.dr 20 Mg PO HS TAKES 1/2 (40MG) TABLET Instructions to patient/family Please see electronic discharge instructions given to patient. Clinical Quality Measures DVT/VTE Risk/Contraindication: Risk Factor Score Per Nursin RFS Level Per Nursing on Admit: 4+=Very High Smoking Cessation Counseling: Counseling-Symptomatic: 3-10 Minutes Copy Copies To 1: CHAD SCHROEDER DO; PATTI AQUINO KATELYN M MD Apr 04, 2019 09:27
[2019-04-04] MEDS ORDERED: AZIT250T12 PO (09:41)
[2019-04-04] MEDS ORDERED: PRD20T PO (09:41)
--- NOTE | 2019-04-04 10:52 | Discharge Inst-Simple/Standard ---
Discharge Inst-Standard Reconcile Patient Problems Problems Reviewed?: Yes Discharge Medications New, Converted or Re-Newed RX: Transmitted to Pharmacy Patient Instructions/Follow Up Plan of Care/Instructions/FU: Please continue to take your medications as written. Please follow up with Dr Aquino and Dr Schroeder as scheduled. Activity as Tolerated: Yes Discharge Diet: Cardiac Diet Return to The Hospital For: Shortness of breath, chest pain, confusion, worsening cough, fever, if you feel you are getting worse. Planned Outpatient Orders/Ref. Pneu Vac Indicated: Yes MARIA DEL ROSARIO HUMPHREY MD Apr 04, 2019 10:51
--- NOTE | 2019-04-04 11:02 | NUR ---
at 1033 pt was on RA 85% HR 88 RA at rest. Pt placed on 2L at rest 90% HR 85. pt got out of bed at 1036 on 2L 90% HR 97. Pt walked for 6 minutes to see how much oxygen was required with exercise. At 1 minute 88% HR 98 on 3L 100ft. At 2 minutes 90% HR 96 on 4L 100ft. At 3 minutes 94% HR 92 on 4L 100ft. At 4 minutes 92% HR 93 on 4L 100ft. At 5 minutes 91% HR 95 on 4L 100ft. At 6 minutes 92% HR 95 on 4L 80ft. Pt returned to bed and placed on 2L oxygen for at rest.
--- NOTE | 2019-04-04 15:00 | NUR ---
CM DISCHARGE PLANNING: Pt is needing new continuous oxygen. Choices presented to patient et she would like to have [facility] as her service provider. Referral sent to [facility] et they will deliver portable oxygen to her room for discharge to home. No further needs voiced or noted at this time.
[2019-04-04 16:00] VITALS: BP 110/67
[2019-04-04 16:15] VITALS: BP 110/67
--- NOTE | 2019-04-04 16:15 | NUR ---
RISA HI demonstrates understanding of discharge instructions and accurately returns instructions upon questioning. Copy of Post-Discharge Instructions given to pt. RISA HI is able to manage continuing needs after discharge. Patients belongings returned to pt. Patient discharged from [facility] on 04/04/19 at 1615. RISA HI left floor via w/c, accompanied by staff and family bu auto.
== END 2019-04-04 16:15 | disposition home or self-care (01) ==
LOC: EDUNIT# 16:06 → ER 16:08 → 4TH 17:40
PROVIDERS: ADMIT Family Medicine; ATTEND Family Medicine
DX: J44.1 Chronic obstructive pulmonary disease with (acute) exacerbation (principal); I10 Essential (primary) hypertension; I82.409 Acute embolism and thrombosis of unspecified deep veins of unspecified lower extremity; I25.10 Atherosclerotic heart disease of native coronary artery without angina pectoris; E78.5 Hyperlipidemia, unspecified; M81.0 Age-related osteoporosis without current pathological fracture; Z88.1 Allergy status to other antibiotic agents; Z90.89 Acquired absence of other organs; Z95.1 Presence of aortocoronary bypass graft; Z90.710 Acquired absence of both cervix and uterus; Z82.3 Family history of stroke; Z82.49 Family history of ischemic heart disease and other diseases of the circulatory system
CPT/HCPCS: 36415; 71045; 71046; 80053; 85007; 85025; 85027; 94640; 94760; 94761; 96374; G0378

== ENCOUNTER 2019-04-17 09:23 | Outpatient (RCR) | payer BC, OTHER ==
[~2019-04-17 09:23] MED LIST changes: +ALBU2.5V4 NEB; +ASPI-983 PO; +ATOR20TA66 PO; +AZIT250T12 PO; +CALC-676 PO; +CHOL20003 PO; +CNC1KV IM; +FLUT1BLS3 INH; +RT-ALBUINH INH; +TERI202.4P SC; -TRAM50TA2 PO; +TRM50T PO
[2019-04-30 13:00] VITALS: BP 131/72
[2019-04-30 13:55] VITALS: BP 90/58
[2019-05-02 13:00] VITALS: BP 130/60
[2019-05-02 14:30] VITALS: BP 100/50
[2019-05-07 12:55] VITALS: BP 114/68
[2019-05-07 13:45] VITALS: BP 98/58
[2019-05-14 13:00] VITALS: BP 114/52
[2019-05-14 14:00] VITALS: BP 110/60
[2019-05-16 13:00] VITALS: BP 120/60
[2019-05-16 14:05] VITALS: BP 115/60
[2019-05-21 12:59] VITALS: BP 128/64
[2019-05-21 14:00] VITALS: BP 90/60
[2019-05-23 12:55] VITALS: BP 112/57
[2019-05-23 14:20] VITALS: BP 115/50
[2019-06-11 13:07] VITALS: BP 108/58
[2019-06-11 14:10] VITALS: BP 100/50
[2019-06-13 12:55] VITALS: BP 108/60
[2019-06-13 14:00] VITALS: BP 106/60
== END 2019-07-16 | disposition home or self-care (01) ==
LOC: PULM 09:23
PROVIDERS: ATTEND Family Medicine
DX: J44.1 Chronic obstructive pulmonary disease with (acute) exacerbation (principal)
CPT/HCPCS: 99211

== ENCOUNTER → 2019-10-24 | Outpatient (CLI) | payer BC, OTHER ==
--- NOTE | 2019-10-24 20:28 | Diagnostic Imaging Report ---
INDICATION: Current smoker with 30 pack-year history for low dose CT screening. COMPARISON: Routine postcontrast enhanced protocol chest CT from 07/30/2018. FINDINGS: Heterogeneous air trapping and changes likely owing to centrilobular emphysema, most pronounced at the upper lobes and apices, stable and chronic. No bronchiectasis. A few calcified subpleural benign granulomas noted. No suspicious noncalcified pulmonary nodule. No chest effusion. No evidence for an aneurysm. There are atherosclerotic coronary arterial calcifications. There is no pleural or pericardial effusion. No acute chest wall pathology IMPRESSION: Stable benign findings with centrilobular emphysema, nonaneurysmal atherosclerosis and benign granulomatous disease. No suspicious finding. Continued low-dose CT screening follow-up in one year's time recommended. Lung RADS category 2 Dictated by: Dictated on workstation # [id number]
== END ==
LOC: RAD 13:13
PROVIDERS: ATTEND Nurse Practitioner Family
DX: J43.2 Centrilobular emphysema (principal); I25.10 Atherosclerotic heart disease of native coronary artery without angina pectoris; L92.9 Granulomatous disorder of the skin and subcutaneous tissue, unspecified; F17.210 Nicotine dependence, cigarettes, uncomplicated; Z72.0 Tobacco use

== ENCOUNTER → 2019-11-05 | Outpatient (CLI) | payer BC, OTHER ==
--- NOTE | 2019-11-05 15:56 | Diagnostic Imaging Report ---
INDICATION: 58-year-old postmenopausal female. COMPARISON: 02/26/2019. FINDINGS: AP Spine L1-L4: [BMD (g/cm2): 1.269] [T-Score: 0.6] [Z-Score: 2.1] [BMD Previous: 1.230] [BMD % Change: 3.2] LT Hip Neck: [BMD (g/cm2): 1.103] [T-Score: 0.5] [Z-Score: 1.9] LT Hip Total: [BMD (g/cm2):1.100] [T-Score:0.7] [Z-Score: 1.9] [BMD Previous: 1.121] [BMD % Change: -1.9] RT Hip Neck: [BMD (g/cm2):0.989] [T-Score:-0.4] [Z-Score:1.1] RT Hip Total: [BMD (g/cm2):1.043] [T-score:0.3] [Z-Score:1.4] [BMD Previous:1.048] [BMD % Change:-0.5] *Indicates significant change from prior examination based on 95% confidence level. World Health Organization criteria for BMD interpretation classify patients as Normal (T-score at or above -1.0), Osteopenic (T-score between -1.0 and -2.5) or Osteoporotic (T-score at or below -2.5). LIMITATIONS AND MODIFICATION: None. IMPRESSION: 1. Normal bone mineral density. 2. No significant change in bone mineral density since prior examination. 3. See below National Osteoporosis Foundation guidelines on when to potentially initiate pharmacologic therapy. Based on the National Osteoporosis Foundation Guidelines, pharmacologic treatment should be initiated in any of the following, unless clinical conditions suggest otherwise: * Any patient with prior fragility fracture of the hip or vertebrae. A spine fracture indicates 5X risk for subsequent spine fracture and 2X risk for subsequent hip fracture. * Osteoporosis (T-score <-2.5). * Postmenopausal women and men age 50 and older with low bone mass/osteopenia (T-score between -1.0 and -2.5) by DXA and 10-year major osteoporotic fracture greater than 20% or a 10-year probability of hip fracture greater than 3%. These fracture risks are supplied above in the FRAX score, if applicable. * Clinician judgement and/or patient preferences may indicate treatment for people with 10-year fracture probabilities above or below these levels. Dictated by: Dictated on workstation # [id number]
== END ==
LOC: RAD 14:09
PROVIDERS: ATTEND Nurse Practitioner Family
DX: E03.8 Other specified hypothyroidism (principal); I10 Essential (primary) hypertension; F41.9 Anxiety disorder, unspecified; J44.9 Chronic obstructive pulmonary disease, unspecified; E53.8 Deficiency of other specified B group vitamins; I25.10 Atherosclerotic heart disease of native coronary artery without angina pectoris; R74.8 Abnormal levels of other serum enzymes; R63.4 Abnormal weight loss; Z72.0 Tobacco use; Z76.0 Encounter for issue of repeat prescription; Z71.6 Tobacco abuse counseling; Z78.0 Asymptomatic menopausal state
CPT/HCPCS: 77080

== ENCOUNTER 2019-12-29 19:26 | Emergency (ER) | payer BC, OTHER ==
[~2019-12-29] VITALS: Ht 168 cm; Wt 56.0 kg
--- OUTSIDE RECORDS SUMMARY | 2019-12-29 19:34 | XMS REPORT | Continuity of Care Document ---
Author Author [facility] Address Unknown Phone Unavailable Care Team Providers Care Senior Accountant Cpa Name Role Phone [facility] Unavailable Unavailable Problems No Data Provided for This Section Medications Combined list of all outpatient medications recorded within the last 15 months b y all Department of Defense and Veterans Affairs facilities, and also all patien t-reported medications. Medication Details Route Status Patient Instructions Prescription Expires Prescript ion Number Last Dispense Date Ordering Pr ovider Order Date Source ALBUTEROL SULFATE HFA (albuterol sulfate ), 90 MCG, HFA AER AD, INHALATION, PERRIGO CO., 8.5 g CANISTER Active [id number] 10/16/2019 CARLOS, 10/17/2019 Pharmacy Data Transaction Service Facility FLUCONAZOLE (FLUCONAZOLE), 150MG, TABLET , ORAL, GLENMARK PHARMA, 1 ea. BLIST PACK Active [id number] 07/16/2019 [place], 07/17/2019 Pharmacy Data Trans action Service Facility HYDROCODONE-ACETAMINOPHEN (HYDROCODONE/A CETAMINOPHEN), 5MG-325MG, TABLET, ORAL, MALLINCKRODT PH, 100 ea. BOTTLE Active [id number] 02/2019 [place]OSSOM, 04/03/2019 Pharmacy Data Transaction Service Facility HYDROCODONE-ACETAMINOPHEN (HYDROCODONE/A CETAMINOPHEN), 5MG-325MG, TABLET, ORAL, MALLINCKRODT PH, 100 ea. BOTTLE Active [id number] [place], 12/07/2018 Pharmacy Data Transaction Service Facility LEVOTHYROXINE SODIUM (levothyroxine sodi um), 88 MCG, TABLET, ORAL, AMNEAL PHARMACE, 1000 ea. BOTTLE Active [id number] 10/18/2019 ALYSIA, 10/19/2019 Pharmacy Data Transaction Service Facility MONTELUKAST SODIUM (MONTELUKAST SODIUM), 10 MG, TABLET, ORAL, CAMBER PHARMACE, 1000 ea. BOTTLE Active [id number] 07/24/2019 MARY, 07/25/2019 Pharmacy Data Transaction Service Facility MONTELUKAST SODIUM (MONTELUKAST SODIUM), 10 MG, TABLET, ORAL, CAMBER PHARMACE, 1000 ea. BOTTLE Active [id number] 08/15/2019 MARY, 08/16/2019 Pharmacy Data Transaction Service Facility NYSTATIN (NYSTATIN), 155282/ML, ORAL AZAR P, ORAL, VISTAPHARM, 480 ml BOTTLE Active [id number] 07/16/2019 RODRIGUEZ, 07/21/2019 Pharmacy Data Trans action Service Facility PREDNISONE (PREDNISONE), 20MG, TABLET, O RAL, ZEYNEP LABS., 500 ea. BOTTLE Active [id number] 04/04/2019 KAM, 04/07/2019 Pharmacy Data Trans action Service Facility TRELEGY ELLIPTA (fluticasone furoate/ume clidinium bromide/vilanterol trifenat), 100-62.5, BLST W/DEV, INHALATION, GLAXOSMITHKLINE, 60 ea. BLIST PACK Active [id number] 08/19/2019 CARLOS, 08/20/2019 Pharmacy Data Transaction Service Facili ty TRELEGY ELLIPTA (fluticasone furoate/ume clidinium bromide/vilanterol trifenat), 100-62.5, BLST W/DEV, INHALATION, GLAXOSMITHKLINE, 60 ea. BLIST PACK Active [id number] 09/25/2019 CARLOS, 09/26/2019 Pharmacy Data Transaction Service Facili ty TRELEGY ELLIPTA (fluticasone furoate/ume clidinium bromide/vilanterol trifenat), 100-62.5, BLST W/DEV, INHALATION, GLAXOSMITHKLINE, 60 ea. BLIST PACK Active [id number] 11/15/2019 CARLOS, 11/16/2019 Pharmacy Data Transaction Service Facili ty Allergies, Adverse Reactions, Alerts No Known Medication Allergies Immunizations No Data Provided for This Section Results No Data Provided for This Section Vital Signs No Data Provided for This Section Encounters No Data Provided for This Section Procedures No Data Provided for This Section Social History Combined list of available smoking, tobacco, and other social history on record at Department of Defense and/or Veterans Affairs facilities. The included entrie s comply with the patient's data sharing authorizations. Social History Type Response Date Comment Source This section is an empty social history section. DoD Assessment and Plan No Data Provided for This Section Plan of Care No Data Provided for This Section Family History No Data Provided for This Section Advance Directives No Data Provided for This Section Functional Status No Data Provided for This Section
--- OUTSIDE RECORDS SUMMARY | 2019-12-29 19:35 | XMS REPORT | Continuity of Care Document ---
Author Organization Unknown Address Unknown Phone Unavailable Allergies Active Description Code Type Severity Reaction Onset Reported/Identified Relationship to Patient Clinical Status Yes Cephalosporins [id number] Dr limon Allergy Severe EDEMA 07/21/2014 Yes tetracycline [id number] Drug Allergy Unknown SUN STROKE 07/21/2014 Medications There is no data. Problems Date Dx Coded Attending Type Code Diagnosis Diagnosed By 10/20/2006 Ot 726.2 10/20/2006 Ot V57.1 10/20/2006 Ot V58.78 01/14/2010 Ot 575.11 CHR ONIC CHOLECYSTITIS 10/28/2010 Ot 708.0 PRUDENCE RGIC URTICARIA 10/28/2010 Ot 782.1 NONS PECIF SKIN ERUPT NEC 10/28/[address] PAIN NEC 10/28/2010 Ot E930.5 ADV EFF CEPHALOSPORIN 04/09/2012 Ot 211.3 GRETCHEN GN NEOPLASM LG BOWEL 04/09/2012 Ot 401.9 HYPE RTENSION NOS 04/09/2012 Ot V58.69 OTH MED,LT,CURRENT USE 04/22/2012 Ot 305.1 TOBA ENVIRONMENTAL TEST TECHNICIAN USE DISORDER 04/22/2012 Ot 461.9 ACUT E SINUSITIS NOS 04/22/2012 Ot 462 ACUTE PHARYNGITIS 04/22/2012 Ot 490 BRONCH ITIS NOS 04/22/2012 Ot 786.2 COUGH 05/23/2012 Ot 787.03 VOM ITING ALONE 05/23/2012 Ot 787.91 ISELA RRHEA 05/23/2012 Ot 789.00 ABD OMINAL PAIN, UNSPECIFIED SITE 09/07/2012 Ot 708.9 URTI CARIA NOS 09/07/2012 Ot 995.0 OTHE R ANAPHYLACTIC REACTION 09/07/2012 Ot E930.5 ADV EFF CEPHALOSPORIN 08/27/2013 PATTI HATFIELD DO Ot 272.4 HYPERLIPIDEMIA NEC/NOS 08/27/2013 PATTI HATFIELD DO Ot 305.1 TOBACCO USE DISORDER 08/27/2013 PATTI HATFIELD DO Ot 368.8 VISUAL DISTURBANCES NEC 08/27/2013 PATTI HATFIELD DO Ot 401.9 HYPERTENSION NOS 08/27/2013 PATTI HATFIELD DO Ot 491.9 CHRONIC BRONCHITIS NOS 08/27/2013 PATTI HATFIELD DO Ot 728.87 MUSCLE WEAKNESS (GENERALIZED) 08/27/2013 PATTI HATFIELD DO Ot 729.5 PAIN IN LIMB 08/27/2013 PATTI HATFIELD DO Ot 782.0 SKIN SENSATION DISTURB 08/27/2013 PATTI HATFIELD DO Ot 784.0 HEADACHE 08/27/2013 PATTI HATFIELD DO Ot 784.92 JAW PAIN 08/27/2013 PATTI HATFIELD DO Ot 786.05 SHORTNESS OF BREATH 08/27/2013 PATTI HATFIELD DO Ot 786.2 COUGH 08/27/2013 PATTI HATFIELD DO Ot 786.59 CHEST PAIN NEC 11/28/2013 MI BAILEY MD Ot 272. 4 HYPERLIPIDEMIA NEC/NOS 11/28/2013 MI BAILEY MD Ot 305. 1 TOBACCO USE DISORDER 11/28/2013 MI BAILEY MD Ot 401. 9 HYPERTENSION NOS 11/28/2013 MI BAILEY MD Ot 414. 01 CORONARY ATHEROSCLEROSIS OF [place] CORON 11/28/2013 MI BAILEY MD Ot 785. 9 CARDIOVAS SYS SYMP NEC 11/28/2013 MI BAILEY MD, Ot V58. 69 OTH MED,LT,CURRENT USE 07/22/2014 MI BAILEY MD Ot 244. 9 HYPOTHYROIDISM NOS 07/22/2014 IM BAILEY MD Ot 272. 4 HYPERLIPIDEMIA NEC/NOS 07/22/2014 MI BAILEY MD Ot 305. 1 TOBACCO USE DISORDER 07/22/2014 MI BAILEY MD Ot 401. 9 HYPERTENSION NOS 07/22/2014 MI BAILEY MD Ot 414. 01 CORONARY ATHEROSCLEROSIS OF [place] CORON 07/22/2014 MI BAILEY MD Ot 786. 50 CHEST PAIN NOS 07/22/2014 MI BAILEY MD Ot 794. 30 ABN CARDIOVASC STUDY NOS 07/22/2014 MI BAILEY MD Ot V45. 82 PERCUTANEOUS TRANSLUM CORON ANGIOPLASTY 07/22/2014 MI BAILEY MD Ot V58. 69 [facility] MED,LT,CURRENT USE 01/08/2015 ALYSIA MEDINA PATTI Valeria Ot V76.12 10/05/2015 HIRAM MEDINAPATTI Ot M19.072 PRIMARY OSTEOARTHRITIS, LEFT ANKLE AND F 10/05/2015 HIRAM MEDINA PATTI Em Ot S93.402A SPRAIN OF UNSPECIFIED LIGAMENT OF LEFT A 10/05/2015 HIRAM MEDINAPATTI Ot S96.912A STRAIN OF UNSP MSL/TND AT ANK/FT LEVEL, 10/05/2015 HIRAM MEDINAPATTI Ot W10.9XXA FALL (ON) (FROM) UNSPECIFIED STAIRS AND 10/05/2015 HIRAMPATTI BLAKELY DO Ot Y92.[address] IN [facility] NON-[facility] (PRIVATE 10/05/2015 HIRAM PATTI MEDINA Ot Y99.8 OTHER EXTERNAL CAUSE STATUS 10/07/2015 HIRAM MEDINAPATTI Ot M19.072 PRIMARY OSTEOARTHRITIS, LEFT ANKLE AND F 10/07/2015 HIRAM PATTI MEDINA Ot S93.402A SPRAIN OF UNSPECIFIED LIGAMENT OF LEFT A 10/07/2015 HIRAM PATTI MEDINA Ot S96.912A STRAIN OF UNSP MSL/TND AT ANK/FT LEVEL, 10/07/2015 HIRAM PATTI MEDINA Ot W10.9XXA FALL (ON) (FROM) UNSPECIFIED STAIRS AND 10/07/2015 HIRAMPATTI BLAKELY DO Ot Y92.[address] IN [facility] NON-[facility] (PRIVATE 10/07/2015 PATTI GANDHI DO Ot Y99.8 OTHER EXTERNAL CAUSE STATUS 12/01/2015 Ot 786.50 12/01/2015 Ot 780.60 12/01/2015 Ot 786.2 12/01/2015 Ot 786.7 12/01/2015 Ot 787.02 HYACINTH SEA ALONE 12/01/2015 Ot 789.01 ABD OMINAL PAIN, RIGHT UPPER QUADRANT 12/01/2015 Ot V76.12 OT SCREEN MAMMO- MALIGN NEOPLASM OF [place] 12/01/2015 Ot 789.01 ABD OMINAL PAIN, RIGHT UPPER QUADRANT 12/01/2015 Ot 787.91 ISELA RRHEA 12/01/2015 Ot 789.00 ABD OMINAL PAIN, UNSPECIFIED SITE 12/01/2015 Ot V72.63 PRE -PROCEDURAL LABORATORY EXAMINATION 12/01/2015 Ot V72.81 TKRI-IHM-IHLDYCZIK CARDIOVASCULAR 12/01/2015 Ot V74.8 SCRE EN-BACTERIAL DIS NEC 12/01/2015 Ot V67.09 TEJ KARLA FOLLOW- UP, OTHER SURGERY 12/01/2015 Ot 786.2 COUGH 12/01/2015 Ot 789.09 ABD OMINAL PAIN, OTHER SPECIFIED SITE 12/01/2015 Ot 611.72 LUM P OR MASS IN BREAST 12/01/2015 Ot V76.12 OTH SCREEN MAMMO- MALIGN NEOPLASM OF [place] 12/01/2015 Ot 793.80 UNS PEC ABNORMAL MAMMOGRAM 12/01/2015 Ot 793.80 UNS PEC ABNORMAL MAMMOGRAM 12/01/2015 Ot 793.80 UNS PEC ABNORMAL MAMMOGRAM 12/01/2015 Ot V72.84 EXA M PRE- OPERATIVE NOS 12/01/2015 PATTI HATFIELD DO Ot V76.12 OTH SCREEN MAMMO-MALIGN NEOPLASM OF [place] 12/01/2015 MADYSON OLSEN MD Ot 397.0 TRICUSPID VALVE DISEASE 12/01/2015 MADYSON OLSEN MD Ot 424.0 MITRAL VALVE DISORDER 12/01/2015 MADYSON OLSEN MD Ot 786.50 CHEST PAIN NOS 12/01/2015 MADYSON OLSEN MD Ot 786.50 CHEST PAIN NOS 12/01/2015 PATTI HATFIELD DO Ot 786.50 CHEST PAIN NOS 12/01/2015 PATTI HATFIELD DO Ot V76.12 OTH SCREEN MAMMO-MALIGN NEOPLASM OF [place] 12/01/2015 Ot 611.72 LUM P OR MASS IN BREAST 12/01/2015 Ot V76.12 OTH SCREEN MAMMO- MALIGN NEOPLASM OF [place] 12/01/2015 Ot 793.80 UNS PEC ABNORMAL MAMMOGRAM 12/01/2015 Ot 793.80 UNS PEC ABNORMAL MAMMOGRAM 12/01/2015 Ot 793.80 UNS PEC ABNORMAL MAMMOGRAM 12/01/2015 Ot V72.84 EXA M PRE- OPERATIVE NOS 12/01/2015 PATTI HATFIELD DO Ot V76.12 OTH SCREEN MAMMO-MALIGN NEOPLASM OF [place] 12/01/2015 MADYSON OLSEN MD Ot 397.0 TRICUSPID VALVE DISEASE 12/01/2015 MADYSON OLSEN MD Ot 424.0 MITRAL VALVE DISORDER 12/01/2015 MADYSON OLSEN MD Ot 786.50 CHEST PAIN NOS 12/01/2015 MADYSON OLSEN MD Ot 786.50 CHEST PAIN NOS 12/01/2015 PATTI HATFIELD DO Ot 786.50 CHEST PAIN NOS 12/01/2015 PATTI HATFIELD DO Ot V76.12 OTH SCREEN MAMMO-MALIGN NEOPLASM OF [place] 01/07/2016 CHARBEL MANDUJANO, DENISSE Payan Ot Z01.818 ENCOUNTER FOR OTHER PREPROCEDURAL EXAMIN 01/08/2016 DENISSE BARGER MD Ot Z01.818 ENCOUNTER FOR OTHER PREPROCEDURAL EXAMIN 01/11/2016 Ot 611.72 LUM P OR MASS IN BREAST 01/11/2016 Ot V76.12 OTH SCREEN MAMMO- MALIGN NEOPLASM OF [place] 01/11/2016 Ot 793.80 UNS PEC ABNORMAL MAMMOGRAM 01/11/2016 Ot 793.80 UNS PEC ABNORMAL MAMMOGRAM 01/11/2016 Ot 793.80 UNS PEC ABNORMAL MAMMOGRAM 01/11/2016 Ot V72.84 EXA M PRE- OPERATIVE NOS 01/11/2016 PATTI HATFIELD DO Ot V76.12 OTH SCREEN MAMMO-MALIGN NEOPLASM OF [place] 01/11/2016 RAÚL MANDUJANO, MADYSON Ot 397.0 TRICUSPID VALVE DISEASE 01/11/2016 MADYSON OLSEN MD Ot 424.0 MITRAL VALVE DISORDER 01/11/2016 MADYSON OLSEN MD Ot 786.50 CHEST PAIN NOS 01/11/2016 MADYSON OLSEN MD Ot 786.50 CHEST PAIN NOS 01/11/2016 PATTI HATFIELD DO Ot 786.50 CHEST PAIN NOS 01/11/2016 PATTI HATFIELD DO Ot V76.12 OTH SCREEN MAMMO-MALIGN NEOPLASM OF [place] 01/11/2016 CHARBEL MANDUJANO, DENISSE Payan Ot K57.90 DVRTCLOS OF INTEST, PART UNSP, W/O PERF 01/11/2016 DENISSE BARGER MD Ot K62.1 RECTAL POLYP 01/12/2016 DENISSE BARGER MD Ot K57.90 DVRTCLOS OF INTEST, PART UNSP, W/O PERF 01/12/2016 DENISSE BARGER MD Ot K62.1 RECTAL POLYP 01/15/2016 CHARBEL MANDUJANO, DENISSE Payan Ot K57.90 DVRTCLOS OF INTEST, PART UNSP, W/O PERF 01/15/2016 DENISSE BARGER MD Ot K62.1 RECTAL POLYP 05/12/2016 MI BAILEY MD Ot E78. 2 MIXED HYPERLIPIDEMIA 05/12/2016 MI BAILEY MD Ot I10 ESSENTIAL (PRIMARY) HYPERTENSION 05/12/2016 MI BAILEY MD Ot I25. 10 ATHSCL HEART DISEASE OF [place] CORONARY 05/12/2016 MI BAILEY MD Ot I44. 0 ATRIOVENTRICULAR BLOCK, FIRST DEGREE 05/18/2016 MI BAILEY MD Ot E78. 5 HYPERLIPIDEMIA, UNSPECIFIED 05/18/2016 MI BAILEY MD Ot F17.210 NICOTINE DEPENDENCE, CIGARETTES, UNCOMPL 05/18/2016 MI BAILEY MD Ot I10 ESSENTIAL (PRIMARY) HYPERTENSION 05/18/2016 MI BAILEY MD Ot I25. 10 ATHSCL HEART DISEASE OF [place] CORONARY 05/18/2016 MI BAILEY MD Ot R07. 89 OTHER CHEST PAIN 05/18/2016 MI BAILEY MD Ot R94. 39 ABNORMAL RESULT OF OTHER CARDIOVASCULAR 05/18/2016 MI BAILEY MD Ot Z79.899 OTHER GROUP HOME (CURRENT) DRUG THERAPY 05/18/2016 MI BAILEY MD Ot Z95. 5 PRESENCE OF CORONARY ANGIOPLASTY IMPLANT 05/31/2016 MI BAILEY MD Ot E78. 2 MIXED HYPERLIPIDEMIA 05/31/2016 MI BIALEY MD Ot I10 ESSENTIAL (PRIMARY) HYPERTENSION 05/31/2016 MI BAILEY MD Ot I25. 10 ATHSCL HEART DISEASE OF [place] CORONARY 05/31/2016 MI BAILEY MD Ot I44. 0 ATRIOVENTRICULAR BLOCK, FIRST DEGREE 06/21/2016 BITA LISA APRN Ot Z12.31 ENCNTR SCREEN MAMMOGRAM FOR MALIGNANT NE 06/22/2016 MI BAILEY MD Ot E78. 5 HYPERLIPIDEMIA, UNSPECIFIED 06/22/2016 MI BAILEY MD Ot F17.210 NICOTINE DEPENDENCE, CIGARETTES, UNCOMPL 06/22/2016 MI BAILEY MD Ot I10 ESSENTIAL (PRIMARY) HYPERTENSION 06/22/2016 MI BAILEY MD Ot I25. 10 ATHSCL HEART DISEASE OF [place] CORONARY 06/22/2016 MI BAILEY MD Ot R07. 89 OTHER CHEST PAIN 06/22/2016 MI BAILEY MD Ot R94. 39 ABNORMAL RESULT OF OTHER CARDIOVASCULAR 06/22/2016 MI BAILEY MD Ot Z79.899 OTHER GROUP HOME (CURRENT) DRUG THERAPY 06/22/2016 MI BAILEY MD Ot Z95. 5 PRESENCE OF CORONARY ANGIOPLASTY IMPLANT 06/16/2017 PATTI HATFIELD DO Ot V76.12 OTH SCREEN MAMMO-MALIGN NEOPLASM OF [place] 06/16/2017 MADYSON OLSEN MD Ot 397.0 TRICUSPID VALVE DISEASE 06/16/2017 MADYSON OLSEN MD Ot 424.0 MITRAL VALVE DISORDER 06/16/2017 MADYSON OLSEN MD Ot 786.50 CHEST PAIN NOS 06/16/2017 MADYSON OLSEN MD Ot 786.50 CHEST PAIN NOS 06/16/2017 PATTI HATFIELD DO Ot 786.50 CHEST PAIN NOS 06/16/2017 PATTI HATFIELD DO Ot V76.12 OTH SCREEN MAMMO-MALIGN NEOPLASM OF [place] 06/16/2017 MI BAILEY MD Ot E78. 2 MIXED HYPERLIPIDEMIA 06/16/2017 MI BAILEY MD Ot I10 ESSENTIAL (PRIMARY) HYPERTENSION 06/16/2017 MI BAILEY MD Ot I25. 10 ATHSCL HEART DISEASE OF [place] CORONARY 06/16/2017 MI BAILEY MD Ot I44. 0 ATRIOVENTRICULAR BLOCK, FIRST DEGREE 06/16/2017 BITA LISA APRN Ot Z12.31 ENCNTR SCREEN MAMMOGRAM FOR MALIGNANT NE 06/20/2017 PATTI HATFIELD DO Ot V76.12 OTH SCREEN MAMMO-MALIGN NEOPLASM OF [place] 06/20/2017 MADYSON OLSEN MD Ot 397.0 TRICUSPID VALVE DISEASE 06/20/2017 MADYSON OLSEN MD Ot 424.0 MITRAL VALVE DISORDER 06/20/2017 MADYSON OLSEN MD Ot 786.50 CHEST PAIN NOS 06/20/2017 MADYSON OLSEN MD Ot 786.50 CHEST PAIN NOS 06/20/2017 PATTI HATFIELD DO Ot 786.50 CHEST PAIN NOS 06/20/2017 HATFIELD DO, PATTI Shaw Ot V76.12 OTH SCREEN MAMMO-MALIGN NEOPLASM OF [place] 06/20/2017 MI BAILEY MD Ot E78. 2 MIXED HYPERLIPIDEMIA 06/20/2017 IM BAILEY MD Ot I10 ESSENTIAL (PRIMARY) HYPERTENSION 06/20/2017 MI BAILEY MD Ot I25. 10 ATHSCL HEART DISEASE OF [place] CORONARY 06/20/2017 MI BAILEY MD Ot I44. 0 ATRIOVENTRICULAR BLOCK, FIRST DEGREE 06/20/2017 BITA LISA HAMMER ADJUSTER Ot Z12.31 ENCNTR SCREEN MAMMOGRAM FOR MALIGNANT NE 06/21/2017 MARY, MIN L HAMMER ADJUSTER Ot I25.10 ATHSCL HEART DISEASE OF [place] CORONARY 06/21/2017 MARY, MIN L HAMMER ADJUSTER Ot Z12.31 ENCNTR SCREEN MAMMOGRAM FOR MALIGNANT NE 06/21/2017 MARY, MIN L HAMMER ADJUSTER Ot Z72 .0 TOBACCO USE 06/29/2017 MARY, MIN L HAMMER ADJUSTER Ot I25.10 ATHSCL HEART DISEASE OF [place] CORONARY 06/29/2017 MARY, MIN L HAMMER ADJUSTER Ot Z12.31 ENCNTR SCREEN MAMMOGRAM FOR MALIGNANT NE 06/29/2017 MARY, MIN L HAMMER ADJUSTER Ot Z72 .0 TOBACCO USE 02/20/2018 PATTI HATFIELD DO Ot V76.12 OTH SCREEN MAMMO-MALIGN NEOPLASM OF [place] 02/20/2018 RAÚL MANDUJANO, MADYSON Ot 397.0 TRICUSPID VALVE DISEASE 02/20/2018 MADYSON OLSEN MD Ot 424.0 MITRAL VALVE DISORDER 02/20/2018 RAÚL MANDUJANO, MADYSON Ot 786.50 CHEST PAIN NOS 02/20/2018 MADYSON OLSEN MD Ot 786.50 CHEST PAIN NOS 02/20/2018 HATFIELDPATTI AVITIA DO Ot 786.50 CHEST PAIN NOS 02/20/2018 PATTI HATFIELD DO Ot V76.12 OTH SCREEN MAMMO-MALIGN NEOPLASM OF [place] 02/20/2018 MI BAILEY MD Ot E78. 2 MIXED HYPERLIPIDEMIA 02/20/2018 MI BAILEY MD Ot I10 ESSENTIAL (PRIMARY) HYPERTENSION 02/20/2018 LYNN MD, BASHAR J Ot I25. 10 ATHSCL HEART DISEASE OF [place] CORONARY 02/20/2018 MI BAILEY MD Ot I44. 0 ATRIOVENTRICULAR BLOCK, FIRST DEGREE 02/20/2018 BITA LISA HAMMER ADJUSTER Ot Z12.31 ENCNTR SCREEN MAMMOGRAM FOR MALIGNANT NE 02/20/2018 MARYMIN LUCAS L HAMMER ADJUSTER Ot I25.10 ATHSCL HEART DISEASE OF [place] CORONARY 02/20/2018 MARY, MIN L HAMMER ADJUSTER Ot Z12.31 ENCNTR SCREEN MAMMOGRAM FOR MALIGNANT NE 02/20/2018 MARY, MIN L HAMMER ADJUSTER Ot Z72 .0 TOBACCO USE 02/27/2018 MI BAILEY MD Ot E78. 1 PURE HYPERGLYCERIDEMIA 02/27/2018 MI BAILEY MD J Ot I10 ESSENTIAL (PRIMARY) HYPERTENSION 02/27/2018 MI BAILEY MD Ot I25. 10 ATHSCL HEART DISEASE OF [place] CORONARY 02/27/2018 MI BAILEY MD Ot I44. 0 ATRIOVENTRICULAR BLOCK, FIRST DEGREE 02/27/2018 MI BAILEY MD Ot R07. 9 CHEST PAIN, UNSPECIFIED 02/28/2018 MI BAILEY MD Ot E78. 1 PURE HYPERGLYCERIDEMIA 02/28/2018 MI BAILEY MD J Ot I10 ESSENTIAL (PRIMARY) HYPERTENSION 02/28/2018 MI BAILEY MD Ot I25. 10 ATHSCL HEART DISEASE OF [place] CORONARY 02/28/2018 MI BAILEY MD Ot I44. 0 ATRIOVENTRICULAR BLOCK, FIRST DEGREE 02/28/2018 MI BAILEY MD Ot R07. 9 CHEST PAIN, UNSPECIFIED 03/07/2018 MI BAILEY MD Ot E78. 1 PURE HYPERGLYCERIDEMIA 03/07/2018 MI BAILEY MD J Ot I10 ESSENTIAL (PRIMARY) HYPERTENSION 03/07/2018 MI BAILEY MD Ot I25. 10 ATHSCL HEART DISEASE OF [place] CORONARY 03/07/2018 MI BAILEY MD Ot I44. 0 ATRIOVENTRICULAR BLOCK, FIRST DEGREE 03/07/2018 MI BAILEY MD Ot R07. 9 CHEST PAIN, UNSPECIFIED 03/14/2018 MI BAILEY MD Ot E78. 1 PURE HYPERGLYCERIDEMIA 03/14/2018 MI BAILEY MD J Ot I10 ESSENTIAL (PRIMARY) HYPERTENSION 03/14/2018 MI BAILEY MD Ot I25. 10 ATHSCL HEART DISEASE OF [place] CORONARY 03/14/2018 MI BAILEY MD Ot I44. 0 ATRIOVENTRICULAR BLOCK, FIRST DEGREE 03/14/2018 MI BAILEY MD Ot R07. 9 CHEST PAIN, UNSPECIFIED 03/20/2018 MARYMIN LUCAS HAMMER ADJUSTER Ot E03 .9 HYPOTHYROIDISM, UNSPECIFIED 03/20/2018 MARYMIN L HAMMER ADJUSTER Ot R63 .4 ABNORMAL WEIGHT LOSS 07/04/2018 MI BAILEY MD Ot E78. 1 PURE HYPERGLYCERIDEMIA 07/04/2018 MI BAILEY MD Ot E78. 2 MIXED HYPERLIPIDEMIA 07/04/2018 MI BAILEY MD Ot F17.210 NICOTINE DEPENDENCE, CIGARETTES, UNCOMPL 07/04/2018 MI BAILEY MD Ot I10 ESSENTIAL (PRIMARY) HYPERTENSION 07/04/2018 MI BAILEY MD Ot I25. 10 ATHSCL HEART DISEASE OF [place] CORONARY 07/04/2018 MI BAILEY MD Ot I65. 23 OCCLUSION AND STENOSIS OF BILATERAL ZENG 07/04/2018 MI BAILEY MD Ot I65. 29 OCCLUSION AND STENOSIS OF UNSPECIFIED CA 07/04/2018 MI BAILEY MD Ot Z79. 82 GROUP HOME (CURRENT) USE OF ASPIRIN 07/04/2018 MI BAILEY MD Ot Z79.899 OTHER CHIEF DATA OFFICER (CURRENT) DRUG THERAPY 07/04/2018 MI BAILEY MD Ot Z95. 5 PRESENCE OF CORONARY ANGIOPLASTY IMPLANT 07/05/2018 MI BAILEY MD Ot E78. 1 PURE HYPERGLYCERIDEMIA 07/05/2018 MI BAILEY MD Ot E78. 2 MIXED HYPERLIPIDEMIA 07/05/2018 MI BAILEY MD Ot F17.210 NICOTINE DEPENDENCE, CIGARETTES, UNCOMPL 07/05/2018 MI BAILEY MD Ot I10 ESSENTIAL (PRIMARY) HYPERTENSION 07/05/2018 MI BAILEY MD Ot I25. 10 ATHSCL HEART DISEASE OF [place] CORONARY 07/05/2018 MI BAILEY MD Ot I65. 29 OCCLUSION AND STENOSIS OF UNSPECIFIED CA 07/05/2018 MI BAILEY MD Ot Z79. 82 CHIEF DATA OFFICER (CURRENT) USE OF ASPIRIN 07/05/2018 MI BAILEY MD Ot Z79.899 OTHER CHIEF DATA OFFICER (CURRENT) DRUG THERAPY 07/05/2018 MI BAILEY MD Ot Z95. 5 PRESENCE OF CORONARY ANGIOPLASTY IMPLANT 07/09/2018 MI BAILEY MD Ot E78. 1 PURE HYPERGLYCERIDEMIA 07/09/2018 MI BAILEY MD Ot E78. 2 MIXED HYPERLIPIDEMIA 07/09/2018 MI BAILEY MD Ot F17.210 NICOTINE DEPENDENCE, CIGARETTES, UNCOMPL 07/09/2018 MI BAILEY MD Ot I10 ESSENTIAL (PRIMARY) HYPERTENSION 07/09/2018 MI BAILEY MD Ot I25. 10 ATHSCL HEART DISEASE OF [place] CORONARY 07/09/2018 MI BAILEY MD Ot I65. 29 OCCLUSION AND STENOSIS OF UNSPECIFIED CA 07/09/2018 MI BAILEY MD Ot Z79. 82 GROUP HOME (CURRENT) USE OF ASPIRIN 07/09/2018 MI BAILEY MD Ot Z79.899 OTHER CHIEF DATA OFFICER (CURRENT) DRUG THERAPY 07/09/2018 MI BAILEY MD Ot Z95. 5 PRESENCE OF CORONARY ANGIOPLASTY IMPLANT 07/09/2018 MI BAILEY MD Ot E78. 1 PURE HYPERGLYCERIDEMIA 07/09/2018 MI BAILEY MD Ot E78. 2 MIXED HYPERLIPIDEMIA 07/09/2018 MI BAILEY MD Ot F17.210 NICOTINE DEPENDENCE, CIGARETTES, UNCOMPL 07/09/2018 MI BAILEY MD Ot I10 ESSENTIAL (PRIMARY) HYPERTENSION 07/09/2018 MI BAILEY MD Ot I25. 10 ATHSCL HEART DISEASE OF [place] CORONARY 07/09/2018 MI BAILEY MD Ot I65. 29 OCCLUSION AND STENOSIS OF UNSPECIFIED CA 07/09/2018 MI BAILEY MD Ot Z79. 82 GROUP HOME (CURRENT) USE OF ASPIRIN 07/09/2018 MI BAILEY MD Ot Z79.899 OTHER GROUP HOME (CURRENT) DRUG THERAPY 07/09/2018 MI BAILEY MD Ot Z95. 5 PRESENCE OF CORONARY ANGIOPLASTY IMPLANT 07/11/2018 MIN HERNANDEZ HAMMER ADJUSTER Ot Z12.31 ENCNTR SCREEN MAMMOGRAM FOR MALIGNANT NE 07/30/2018 ASHLIE GONZALEZ HAMMER ADJUSTER Ot F17.200 NICOTINE DEPENDENCE, UNSPECIFIED, UNCOMP 07/30/2018 ASHLIE GONZALEZ APRN Ot I25.10 ATHSCL HEART DISEASE OF [place] CORONARY 07/30/2018 ASHLIE GONZALEZ APRN Ot J18.9 PNEUMONIA, UNSPECIFIED ORGANISM 07/30/2018 ASHLIE GONZALEZ APRN Ot J43.2 CENTRILOBULAR EMPHYSEMA 07/30/2018 ASHLIE GONZLAEZ APRN Ot J98.4 OTHER DISORDERS OF LUNG 07/30/2018 ASHLIE GONZALEZ HAMMER ADJUSTER Ot R91.8 OTHER NONSPECIFIC ABNORMAL FINDING OF NICHOLE 08/13/2018 ASHLIE GONZALEZ APRN Ot F17.200 NICOTINE DEPENDENCE, UNSPECIFIED, UNCOMP 08/13/2018 ASHLIE GONZALEZ APRN Ot I25.10 ATHSCL HEART DISEASE OF [place] CORONARY 08/13/2018 ASHLIE GONZALEZ APRN Ot J18.9 PNEUMONIA, UNSPECIFIED ORGANISM 08/13/2018 ASHLIE GONZALEZ APRN Ot J43.2 CENTRILOBULAR EMPHYSEMA 08/13/2018 ASHLIE GONZALEZ APRN Ot J98.4 OTHER DISORDERS OF LUNG 08/13/2018 ASHLIE GONZALEZ APRN Ot R91.8 OTHER NONSPECIFIC ABNORMAL FINDING OF NICHOLE 09/21/2018 MI BAILEY MD Ot E78. 1 PURE HYPERGLYCERIDEMIA 09/21/2018 MI BAILEY MD, Ot E78. 2 MIXED HYPERLIPIDEMIA 09/21/2018 MI BAILEY MD Ot F17.210 NICOTINE DEPENDENCE, CIGARETTES, UNCOMPL 09/21/2018 MI BAILEY MD Ot I10 ESSENTIAL (PRIMARY) HYPERTENSION 09/21/2018 MI BAILEY MD, Ot I25. 10 ATHSCL HEART DISEASE OF [place] CORONARY 09/21/2018 MI BAILEY MD Ot I65. 23 OCCLUSION AND STENOSIS OF BILATERAL ZENG 09/21/2018 MI BAILEY MD, Ot Z79. 82 CHIEF DATA OFFICER (CURRENT) USE OF ASPIRIN 09/21/2018 MI BAILEY MD, Ot Z79.899 OTHER GROUP HOME (CURRENT) DRUG THERAPY 09/21/2018 MI BAILEY MD, Ot Z95. 5 PRESENCE OF CORONARY ANGIOPLASTY IMPLANT 03/14/2019 ABDIFATAH CERRATO DO Ot M81.0 AGE- RELATED OSTEOPOROSIS W/O CURRENT PAT 03/14/2019 ABDIFATAH CERRATO DO W Ot Z78.0 ASYMPTOMATIC MENOPAUSAL STATE 04/04/2019 MARIA DEL ROSARIO HUMPHREY MD Ot E78. 5 HYPERLIPIDEMIA, UNSPECIFIED 04/04/2019 MARIA DEL ROSARIO HUMPHREY MD Ot I10 ESSENTIAL (PRIMARY) HYPERTENSION 04/04/2019 MARIA DEL ROSARIO HUMPHREY MD Ot I25. 10 ATHSCL HEART DISEASE OF [place] CORONARY 04/04/2019 MARIA DEL ROSARIO HUMPHREY MD, Ot J44. 1 CHRONIC OBSTRUCTIVE PULMONARY DISEASE W 04/04/2019 MARIA DEL ROSARIO HUMPHREY MD, Ot M81. 0 AGE-RELATED OSTEOPOROSIS W/O CURRENT PAT 04/04/2019 MARIA DEL ROSARIO HUMPHREY MD, Ot Z82. 3 FAMILY HISTORY OF STROKE 04/04/2019 MARIA DEL ROSARIO HUMPHREY MD Ot Z82. 49 FAMILY HX OF ISCHEM HEART DIS AND OTH DI 04/04/2019 MARIA DEL ROSARIO HUMPHREY MD Ot Z88. 1 ALLERGY STATUS TO OTHER ANTIBIOTIC AGENT 04/04/2019 MARIA DEL ROSARIO HUMPHREY MD Ot Z90.710 ACQUIRED ABSENCE OF BOTH CERVIX AND UTER 04/04/2019 MARIA DEL ROSARIO HUMPHREY MD Ot Z90. 89 ACQUIRED ABSENCE OF OTHER ORGANS 04/04/2019 MARIA DEL ROSARIO HUMPHREY MD Ot Z95. 1 PRESENCE OF AORTOCORONARY BYPASS GRAFT 04/04/2019 MARIA DEL ROSARIO HUMPHREY MD Ot E78. 5 HYPERLIPIDEMIA, UNSPECIFIED 04/04/2019 MARIA DEL ROSARIO HUMPHREY MD Ot I10 ESSENTIAL (PRIMARY) HYPERTENSION 04/04/2019 MARIA DEL ROSARIO HUMPHREY MD Ot I25. 10 ATHSCL HEART DISEASE OF [place] CORONARY 04/04/2019 MARIA DEL ROSARIO HUMPHREY MD Ot I82.409 ACUTE EMBOLISM AND THOMBOS UNSP DEEP VN 04/04/2019 MARIA DEL ROSARIO HUMPHREY MD Ot J44. 1 CHRONIC OBSTRUCTIVE PULMONARY DISEASE W 04/04/2019 MARIA DEL ROSARIO HUMPHREY MD Ot M81. 0 AGE-RELATED OSTEOPOROSIS W/O CURRENT PAT 04/04/2019 MARIA DEL ROSARIO HUMPHREY MD Ot Z82. 3 FAMILY HISTORY OF STROKE 04/04/2019 MARIA DEL ROSARIO HUMPHREY MD Ot Z82. 49 FAMILY HX OF ISCHEM HEART DIS AND OTH DI 04/04/2019 MARIA DEL ROSARIO HUMPHREY MD Ot Z88. 1 ALLERGY STATUS TO OTHER ANTIBIOTIC AGENT 04/04/2019 MARIA DEL ROSARIO HUMPHREY MD Ot Z90.710 ACQUIRED ABSENCE OF BOTH CERVIX AND UTER 04/04/2019 MARIA DEL ROSARIO HUMPHREY MD Ot Z90. 89 ACQUIRED ABSENCE OF OTHER ORGANS 04/04/2019 MARIA DEL ROSARIO HUMPHREY MD Ot Z95. 1 PRESENCE OF AORTOCORONARY BYPASS GRAFT 04/11/2019 MARIA DEL ROSARIO HUMPHREY MD, Ot E78. 5 HYPERLIPIDEMIA, UNSPECIFIED 04/11/2019 MARIA DEL ROSARIO HUMPHREY MD Ot I10 ESSENTIAL (PRIMARY) HYPERTENSION 04/11/2019 MARIA DEL ROSARIO HUMPHREY MD Ot I25. 10 ATHSCL HEART DISEASE OF [place] CORONARY 04/11/2019 MARIA DEL ROSARIO HUMPHREY MD Ot I82.409 ACUTE EMBOLISM AND THOMBOS UNSP DEEP VN 04/11/2019 MARIA DEL ROSARIO HUMPHREY MD, Ot J44. 1 CHRONIC OBSTRUCTIVE PULMONARY DISEASE W 04/11/2019 MARIA DEL ROSARIO HUMPHREY MD Ot M81. 0 AGE-RELATED OSTEOPOROSIS W/O CURRENT PAT 04/11/2019 MARIA DEL ROSARIO HUMPHREY MD Ot Z82. 3 FAMILY HISTORY OF STROKE 04/11/2019 MARIA DEL ROSARIO HUMPHREY MD Ot Z82. 49 FAMILY HX OF ISCHEM HEART DIS AND OTH DI 04/11/2019 MARIA DEL ROSARIO HUMPHREY MD Ot Z88. 1 ALLERGY STATUS TO OTHER ANTIBIOTIC AGENT 04/11/2019 MARIA DEL ROSARIO HUMPHREY MD Ot Z90.710 ACQUIRED ABSENCE OF BOTH CERVIX AND UTER 04/11/2019 MARIA DEL ROSARIO HUMPHREY MD Ot Z90. 89 ACQUIRED ABSENCE OF OTHER ORGANS 04/11/2019 MARIA DEL ROSARIO HUMPHREY MD Ot Z95. 1 PRESENCE OF AORTOCORONARY BYPASS GRAFT 04/11/2019 MARIA DEL ROSARIO HUMPHREY MD, Ot E78. 5 HYPERLIPIDEMIA, UNSPECIFIED 04/11/2019 MARIA DEL ROSARIO HUMPHREY MD Ot I10 ESSENTIAL (PRIMARY) HYPERTENSION 04/11/2019 MARIA DEL ROSARIO HUMPHREY MD Ot I25. 10 ATHSCL HEART DISEASE OF [place] CORONARY 04/11/2019 MARIA DEL ROSARIO HUMPHREY MD Ot I82.409 ACUTE EMBOLISM AND THOMBOS UNSP DEEP VN 04/11/2019 MARIA DEL ROSARIO HUMPHREY MD, Ot J44. 1 CHRONIC OBSTRUCTIVE PULMONARY DISEASE W 04/11/2019 MARIA DEL ROSARIO HUMPHREY MD, Ot M81. 0 AGE-RELATED OSTEOPOROSIS W/O CURRENT PAT 04/11/2019 MARIA DEL ROSARIO HUMPHREY MD, Ot Z82. 3 FAMILY HISTORY OF STROKE 04/11/2019 MARIA DEL ROSARIO HUMPHREY MD, Ot Z82. 49 FAMILY HX OF ISCHEM HEART DIS AND OTH DI 04/11/2019 MARIA DEL ROSARIO HUMPHREY MD, Ot Z88. 1 ALLERGY STATUS TO OTHER ANTIBIOTIC AGENT 04/11/2019 MARIA DEL ROSARIO HUMPHREY MD, Ot Z90.710 ACQUIRED ABSENCE OF BOTH CERVIX AND UTER 04/11/2019 MARIA DEL ROSARIO HUMPHREY MD Ot Z90. 89 ACQUIRED ABSENCE OF OTHER ORGANS 04/11/2019 MARIA DEL ROSARIO HUMPHREY MD Ot Z95. 1 PRESENCE OF AORTOCORONARY BYPASS GRAFT 05/01/2019 MARIA DEL ROSARIO HUMPHREY MD Ot J44. 1 CHRONIC OBSTRUCTIVE PULMONARY DISEASE W 05/02/2019 MARIA DEL ROSARIO HUMPHREY MD Ot J44. 1 CHRONIC OBSTRUCTIVE PULMONARY DISEASE W 05/07/2019 MARIA DEL ROSARIO HUMPHREY MD Ot J44. 1 CHRONIC OBSTRUCTIVE PULMONARY DISEASE W 05/07/2019 MARIA DEL ROSARIO HUMPHREY MD Ot J44. 1 CHRONIC OBSTRUCTIVE PULMONARY DISEASE W 05/14/2019 MARIA DEL ROSARIO HUMPHREY MD Ot J44. 1 CHRONIC OBSTRUCTIVE PULMONARY DISEASE W 05/14/2019 MARIA DEL ROSARIO HUMPHREY MD Ot J44. 1 CHRONIC OBSTRUCTIVE PULMONARY DISEASE W 05/16/2019 MARIA DEL ROSARIO HUMPHREY MD Ot J44. 1 CHRONIC OBSTRUCTIVE PULMONARY DISEASE W 05/21/2019 MARIA DEL ROSARIO HUMPHREY MD Ot J44. 1 CHRONIC OBSTRUCTIVE PULMONARY DISEASE W 05/21/2019 MARIA DEL ROSARIO HUMPHREY MD Ot J44. 1 CHRONIC OBSTRUCTIVE PULMONARY DISEASE W 05/23/2019 MARIA DEL ROSARIO HUMPHREY MD Ot J44. 1 CHRONIC OBSTRUCTIVE PULMONARY DISEASE W 06/11/2019 MARIA DEL ROSARIO HUMPHREY MD Ot J44. 1 CHRONIC OBSTRUCTIVE PULMONARY DISEASE W 06/13/2019 MARIA DEL ROSARIO HUMPHREY MD Ot J44. 1 CHRONIC OBSTRUCTIVE PULMONARY DISEASE W 06/27/2019 MARIA DEL ROSARIO HUMPHREY MD Ot J44. 1 CHRONIC OBSTRUCTIVE PULMONARY DISEASE W 07/16/2019 MARIA DEL ROSARIO HUMPHREY MD Ot J44. 1 CHRONIC OBSTRUCTIVE PULMONARY DISEASE W 07/18/2019 KAM MANDUJANO, MARIA DEL ROSARIO Payan Ot J44. 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, SUBC 11/06/2019 ASHLIE GONZALEZ HAMMER ADJUSTER Ot Z72.0 TOBACCO USE 11/07/2019 MARY, MIN L HAMMER ADJUSTER Ot E03 .8 OTHER SPECIFIED HYPOTHYROIDISM 11/07/2019 MARY, MIN L HAMMER ADJUSTER Ot E53 .8 DEFICIENCY OF OTHER SPECIFIED B GROUP 11/07/2019 MARY, MIN L HAMMER ADJUSTER Ot F41 .9 ANXIETY DISORDER, UNSPECIFIED 11/07/2019 MARY, MIN L HAMMER ADJUSTER Ot I10 ESSENTIAL (PRIMARY) HYPERTENSION 11/07/2019 MARY, MIN L HAMMER ADJUSTER Ot I25.10 ATHSCL HEART DISEASE OF [place] CORONARY 11/07/2019 MARY, MIN L HAMMER ADJUSTER Ot J44 .9 CHRONIC OBSTRUCTIVE PULMONARY DISEASE, U 11/07/2019 MARY, MIN L HAMMER ADJUSTER Ot R63 .4 ABNORMAL WEIGHT LOSS 11/07/2019 MARY, MIN L HAMMER ADJUSTER Ot R74 .8 ABNORMAL LEVELS OF OTHER SERUM ENZYMES 11/07/2019 MARY, MIN L HAMMER ADJUSTER Ot Z71 .6 TOBACCO ABUSE COUNSELING 11/07/2019 MARY, MIN L HAMMER ADJUSTER Ot Z72 .0 TOBACCO USE 11/07/2019 MARY, MIN L HAMMER ADJUSTER Ot Z76 .0 ENCOUNTER FOR ISSUE OF REPEAT PRESCRIPTI 11/07/2019 MARY, MIN L HAMMER ADJUSTER Ot Z78 .0 ASYMPTOMATIC MENOPAUSAL STATE 11/07/2019 MARY, MIN L HAMMER ADJUSTER Ot E03 .8 OTHER SPECIFIED HYPOTHYROIDISM 11/07/2019 MARY, MIN L HAMMER ADJUSTER Ot E53 .8 DEFICIENCY OF OTHER SPECIFIED B GROUP 11/07/2019 MARY, MIN L HAMMER ADJUSTER Ot F41 .9 ANXIETY DISORDER, UNSPECIFIED 11/07/2019 MARY, MIN L HAMMER ADJUSTER Ot I10 ESSENTIAL (PRIMARY) HYPERTENSION 11/07/2019 MARY, MIN Breen APRN Ot I25.10 ATHSCL HEART DISEASE OF [place] CORONARY 11/07/2019 MARY, MIN Breen HAMMER ADJUSTER Ot J44 .9 CHRONIC OBSTRUCTIVE PULMONARY DISEASE, U 11/07/2019 MARY, MIN Breen APRN Ot R63 .4 ABNORMAL WEIGHT LOSS 11/07/2019 MARY, MIN Breen HAMMER ADJUSTER Ot R74 .8 ABNORMAL LEVELS OF OTHER SERUM ENZYMES 11/07/2019 MARY, MIN Breen HAMMER ADJUSTER Ot Z71 .6 TOBACCO ABUSE COUNSELING 11/07/2019 MARY, MIN Breen HAMMER ADJUSTER Ot Z72 .0 TOBACCO USE 11/07/2019 MARY, MIN Breen APRN Ot Z76 .0 ENCOUNTER FOR ISSUE OF REPEAT PRESCRIPTI 11/07/2019 MARY, MIN Breen HAMMER ADJUSTER Ot Z78 .0 ASYMPTOMATIC MENOPAUSAL STATE Procedures There is no data. Results Test Result Range Complete urinalysis with reflex to cultu re - 05/18/16 08:22 Urine color determination YELLOW NRG Urine clarity determination SLIGHTLY CLOUDY NRG Urine pH measurement by test strip 6 5-9 Specific gravity of urine by test strip 1.020 1.016-1.022 Urine protein assay by test strip, semi-quantitative NEGATIVE NEGATIVE Urine glucose detection by automated test strip NE GATIVE NEGATIVE Erythrocytes detection in urine sediment by light micr oscopy NEGATIVE NEGATIVE Urine ketones detection by automated test strip NE GATIVE NEGATIVE Urine nitrite detection by test strip NEGATIVE NEGATIVE Urine total bilirubin detection by test strip NEGA TIVE NEGATIVE Urine urobilinogen measurement by automated test strip (mass/volume) NORMAL NORMAL Urine leukocyte esterase detection by dipstick NEG ATIVE NEGATIVE Automated urine sediment erythrocyte cou nt by microscopy (number/high power field) NONE NRG Automated urine sediment leukocyte count by microscopy (number/high power field) [HPF] NRG Bacteria detection in urine sediment by light microsco py TRACE NRG Squamous epithelial cells detection in u rine sediment by light microscopy 5-10 NRG Crystals detection in urine sediment by light microsco py NONE NRG Casts detection in urine sediment by light microscopy NONE NRG Mucus detection in urine sediment by light microscopy NEGATIVE NRG Complete urinalysis with reflex to culture NO NRG Yeast detection in urine sediment by light microscopy FEW NRG Automated blood complete blood count (he mogram) panel - 05/18/16 08:30 Blood leukocytes automated count (number/volume) 6.7 10*3/uL 4.3-11.0 Blood erythrocytes automated count (number/volume) 5.01 10*6/uL 4.35-5.85 Venous blood hemoglobin measurement (mass/volume) 15.0 g/dL 11.5-16.0 Blood hematocrit (volume fraction) 45 % 35-52 Automated erythrocyte mean corpuscular volume 90 [ foz_us] 80-99 Automated erythrocyte mean corpuscular h emoglobin (mass per erythrocyte) 30 pg 25-34 Automated erythrocyte mean corpuscular h emoglobin concentration measurement (mass/volume) 33 g/dL 32-36 Automated erythrocyte distribution width ratio 14. 2 % 10.0- 14.5 Automated blood platelet count (count/volume) 357 10*3/uL 130-400 Automated blood platelet mean volume measurement 10.1 [foz_us] 7.4-10.4 PT panel in platelet poor plasma by coag ulation assay - 05/18/16 08:30 Prothrombin time (PT) in platelet poor plasma by coagu lation assay 12.5 s 12.2-14.7 INR in platelet poor plasma or blood by coagulation as say 1.0 0.8-1.4 Activated partial thromboplastin time (a PTT) in platelet poor plasma bycoagulation assay - 05/18/16 08:30 Activated partial thromboplastin time (a PTT) in platelet poor plasma bycoagulation assay 29 s 24-35 Comprehensive metabolic panel - 05/18/16 08:30 Serum or plasma sodium measurement (moles/volume) 140 mmol/L 135-145 Serum or plasma potassium measurement (moles/volume) 4.1 mmol/L 3.6-5.0 Serum or plasma chloride measurement (moles/volume) 106 mmol/L 98-107 Carbon dioxide 26 mmol/L 21-32 Serum or plasma anion gap determination (moles/volume) 8 mmol/L 5-14 Serum or plasma urea nitrogen measurement (mass/volume ) 12 mg/dL 7-18 Serum or plasma creatinine measurement (mass/volume) 0.80 mg/dL 0.60-1.30 Serum or plasma urea nitrogen/creatinine mass ratio 15 NRG Serum or plasma creatinine measurement w ith calculation of estimated glomerular filtration rate > NRG Serum or plasma glucose measurement (mass/volume) 124 mg/dL 70-105 Serum or plasma calcium measurement (mass/volume) 9.3 mg/dL 8.5-10.1 Serum or plasma total bilirubin measurement (mass/volu me) 0.5 mg/dL 0.1-1.0 Serum or plasma alkaline phosphatase rober surement (enzymatic activity/volume) 129 U/L 40-136 Serum or plasma aspartate aminotransfera se measurement (enzymatic activity/volume) 11 U/L 5-34 Serum or plasma alanine aminotransferase measurement (enzymatic activity/volume) 12 U/L 0-55 Serum or plasma protein measurement (mass/volume) 6.9 g/dL 6.4-8.2 Serum or plasma albumin measurement (mass/volume) 4.0 g/dL 3.2-4.5 Lipid 1996 panel - 05/18/16 08:30 Serum or plasma triglyceride measurement (mass/volume) 133 mg/dL <150 Serum or plasma cholesterol measurement (mass/volume) 158 mg/dL < 200 Serum or plasma cholesterol in HDL measurement (mass/v olume) 32 mg/dL 40-60 Cholesterol in LDL [mass/volume] in serum or plasma by direct assay 105 mg/dL 1-129 Serum or plasma cholesterol in VLDL measurement (mass/ volume) 27 mg/dL 5-40 Methicillin resistant Staphylococcus aur eus (MRSA) screening culture - 05/18/16 08:30 Methicillin resistant Staphylococcus aureus (MRSA) scr eening culture NEG NRG Automated blood complete blood count (he mogram) panel - 07/04/18 08:00 Blood leukocytes automated count (number/volume) 7.3 10*3/uL 4.3-11.0 Blood erythrocytes automated count (number/volume) 5.03 10*6/uL 4.35-5.85 Venous blood hemoglobin measurement (mass/volume) 14.5 g/dL 11.5-16.0 Blood hematocrit (volume fraction) 44 % 35-52 Automated erythrocyte mean corpuscular volume 87 [ foz_us] 80-99 Automated erythrocyte mean corpuscular h emoglobin (mass per erythrocyte) 29 pg 25-34 Automated erythrocyte mean corpuscular h emoglobin concentration measurement (mass/volume) 33 g/dL 32-36 Automated erythrocyte distribution width ratio 14. 6 % 10.0- 14.5 Automated blood platelet count (count/volume) 380 10*3/uL 130-400 Automated blood platelet mean volume measurement 9.8 [foz_us] 7.4-10.4 PT panel in platelet poor plasma by coag ulation assay - 07/04/18 08:00 Prothrombin time (PT) in platelet poor plasma by coagu lation assay 12.8 s 12.2-14.7 INR in platelet poor plasma or blood by coagulation as say 1.0 0.8-1.4 Activated partial thromboplastin time (a PTT) in platelet poor plasma bycoagulation assay - 07/04/18 08:00 Activated partial thromboplastin time (a PTT) in platelet poor plasma bycoagulation assay 32 s 24-35 Comprehensive metabolic panel - 07/04/18 08:00 Serum or plasma sodium measurement (moles/volume) 139 mmol/L 135-145 Serum or plasma potassium measurement (moles/volume) 3.9 mmol/L 3.6-5.0 Serum or plasma chloride measurement (moles/volume) 103 mmol/L 98-107 Carbon dioxide 26 mmol/L 21-32 Serum or plasma anion gap determination (moles/volume) 10 mmol/L 5-14 Serum or plasma urea nitrogen measurement (mass/volume ) 9 mg/dL 7-18 Serum or plasma creatinine measurement (mass/volume) 0.81 mg/dL 0.60-1.30 Serum or plasma urea nitrogen/creatinine mass ratio 11 NRG Serum or plasma creatinine measurement w ith calculation of estimated glomerular filtration rate > NRG Serum or plasma glucose measurement (mass/volume) 109 mg/dL 70-105 Serum or plasma calcium measurement (mass/volume) 9.4 mg/dL 8.5-10.1 Serum or plasma total bilirubin measurement (mass/volu me) 0.7 mg/dL 0.1-1.0 Serum or plasma alkaline phosphatase rober surement (enzymatic activity/volume) 104 U/L 40-136 Serum or plasma aspartate aminotransfera se measurement (enzymatic activity/volume) 13 U/L 5-34 Serum or plasma alanine aminotransferase measurement (enzymatic activity/volume) 8 U/L 0-55 Serum or plasma protein measurement (mass/volume) 7.2 g/dL 6.4-8.2 Serum or plasma albumin measurement (mass/volume) 4.0 g/dL 3.2-4.5 CALCIUM CORRECTED 9.4 mg/dL 8.5-10.1 Lipid 1996 panel - 07/04/18 08:00 Serum or plasma triglyceride measurement (mass/volume) 108 mg/dL <150 Serum or plasma cholesterol measurement (mass/volume) 141 mg/dL < 200 Serum or plasma cholesterol in HDL measurement (mass/v olume) 33 mg/dL 40-60 Cholesterol in LDL [mass/volume] in serum or plasma by direct assay 90 mg/dL 1-129 Serum or plasma cholesterol in VLDL measurement (mass/ volume) 22 mg/dL 5-40 Methicillin resistant Staphylococcus aur eus (MRSA) screening culture - 07/04/18 08:00 Methicillin resistant Staphylococcus aureus (MRSA) scr eening culture NEG NRG Complete blood count (CBC) with automate d white blood cell (WBC) differential - 04/02/19 16:20 Blood leukocytes automated count (number/volume) 16.6 10*3/uL 4.3-11.0 Blood erythrocytes automated count (number/volume) 5.01 10*6/uL 4.35-5.85 Venous blood hemoglobin measurement (mass/volume) 15.1 g/dL 11.5-16.0 Blood hematocrit (volume fraction) 45 % 35-52 Automated erythrocyte mean corpuscular volume 89 [ foz_us] 80-99 Automated erythrocyte mean corpuscular h emoglobin (mass per erythrocyte) 30 pg 25-34 Automated erythrocyte mean corpuscular h emoglobin concentration measurement (mass/volume) 34 g/dL 32-36 Automated erythrocyte distribution width ratio 14. 4 % 10.0- 14.5 Automated blood platelet count (count/volume) 363 10*3/uL 130-400 Automated blood platelet mean volume measurement 10.0 [foz_us] 7.4-10.4 Automated blood neutrophils/100 leukocytes 77 % 42-75 Automated blood lymphocytes/100 leukocytes 17 % 12-44 Blood monocytes/100 leukocytes 4 % 0-12 Automated blood eosinophils/100 leukocytes 2 % 0-10 Automated blood basophils/100 leukocytes 0 % 0-10 Blood neutrophils automated count (number/volume) 12.7 10*3 1.8-7.8 Blood lymphocytes automated count (number/volume) 2.8 10*3 1.0-4.0 Blood monocytes automated count (number/volume) 0. 7 10*3 0.0-1.0 Automated eosinophil count 0.3 10*3/uL 0 .0-0.3 Automated blood basophil count (count/volume) 0.1 10*3/uL 0.0-0.1 Comprehensive metabolic panel - 04/02/19 16:20 Serum or plasma sodium measurement (moles/volume) 139 mmol/L 135-145 Serum or plasma potassium measurement (moles/volume) 3.7 mmol/L 3.6-5.0 Serum or plasma chloride measurement (moles/volume) 100 mmol/L 98-107 Carbon dioxide 25 mmol/L 21-32 Serum or plasma anion gap determination (moles/volume) 14 mmol/L 5-14 Serum or plasma urea nitrogen measurement (mass/volume ) 8 mg/dL 7-18 Serum or plasma creatinine measurement (mass/volume) 0.82 mg/dL 0.60-1.30 Serum or plasma urea nitrogen/creatinine mass ratio 10 NRG Serum or plasma creatinine measurement w ith calculation of estimated glomerular filtration rate > NRG Serum or plasma glucose measurement (mass/volume) 122 mg/dL 70-105 Serum or plasma calcium measurement (mass/volume) 9.8 mg/dL 8.5-10.1 Serum or plasma total bilirubin measurement (mass/volu me) 0.5 mg/dL 0.1-1.0 Serum or plasma alkaline phosphatase rober surement (enzymatic activity/volume) 133 U/L 40-136 Serum or plasma aspartate aminotransfera se measurement (enzymatic activity/volume) 11 U/L 5-34 Serum or plasma alanine aminotransferase measurement (enzymatic activity/volume) 12 U/L 0-55 Serum or plasma protein measurement (mass/volume) 7.6 g/dL 6.4-8.2 Serum or plasma albumin measurement (mass/volume) 4.2 g/dL 3.2-4.5 CALCIUM CORRECTED 9.6 mg/dL 8.5-10.1 Manual absolute plasma cell count - 03/13 07/31 16:20 Blood monocytes/100 leukocytes 4 % NRG Manual blood segmented neutrophils/100 leukocytes 73 % NRG Blood band neutrophils/100 leukocytes 4 % NRG Manual blood lymphocytes/100 leukocytes 18 % NRG Manual eosinophils/100 leukocytes in nose 1 % NRG Blood erythrocyte morphology finding identification NORMAL NRG Complete blood count (CBC) with automate d white blood cell (WBC) differential - 04/03/19 04:40 Blood leukocytes automated count (number/volume) 10.6 10*3/uL 4.3-11.0 Blood erythrocytes automated count (number/volume) 4.85 10*6/uL 4.35-5.85 Venous blood hemoglobin measurement (mass/volume) 14.5 g/dL 11.5-16.0 Blood hematocrit (volume fraction) 44 % 35-52 Automated erythrocyte mean corpuscular volume 90 [ foz_us] 80-99 Automated erythrocyte mean corpuscular h emoglobin (mass per erythrocyte) 30 pg 25-34 Automated erythrocyte mean corpuscular h emoglobin concentration measurement (mass/volume) 33 g/dL 32-36 Automated erythrocyte distribution width ratio 13. 9 % 10.0- 14.5 Automated blood platelet count (count/volume) 301 10*3/uL 130-400 Automated blood platelet mean volume measurement 10.1 [foz_us] 7.4-10.4 Automated blood neutrophils/100 leukocytes 93 % 42-75 Automated blood lymphocytes/100 leukocytes 7 % 12-44 Blood monocytes/100 leukocytes 0 % 0-12 Automated blood eosinophils/100 leukocytes 0 % 0-10 Automated blood basophils/100 leukocytes 0 % 0-10 Blood neutrophils automated count (number/volume) 9.8 10*3 1.8-7.8 Blood lymphocytes automated count (number/volume) 0.7 10*3 1.0-4.0 Blood monocytes automated count (number/volume) 0. 0 10*3 0.0-1.0 Automated eosinophil count 0.0 10*3/uL 0 .0-0.3 Automated blood basophil count (count/volume) 0.0 10*3/uL 0.0-0.1 Comprehensive metabolic panel - 04/03/19 04:40 Serum or plasma sodium measurement (moles/volume) 139 mmol/L 135-145 Serum or plasma potassium measurement (moles/volume) 3.7 mmol/L 3.6-5.0 Serum or plasma chloride measurement (moles/volume) 103 mmol/L 98-107 Carbon dioxide 25 mmol/L 21-32 Serum or plasma anion gap determination (moles/volume) 11 mmol/L 5-14 Serum or plasma urea nitrogen measurement (mass/volume ) 9 mg/dL 7-18 Serum or plasma creatinine measurement (mass/volume) 0.72 mg/dL 0.60-1.30 Serum or plasma urea nitrogen/creatinine mass ratio 13 NRG Serum or plasma creatinine measurement w ith calculation of estimated glomerular filtration rate > NRG Serum or plasma glucose measurement (mass/volume) 207 mg/dL 70-105 Serum or plasma calcium measurement (mass/volume) 9.4 mg/dL 8.5-10.1 Serum or plasma total bilirubin measurement (mass/volu me) 0.4 mg/dL 0.1-1.0 Serum or plasma alkaline phosphatase rober surement (enzymatic activity/volume) 141 U/L 40-136 Serum or plasma aspartate aminotransfera se measurement (enzymatic activity/volume) 11 U/L 5-34 Serum or plasma alanine aminotransferase measurement (enzymatic activity/volume) 11 U/L 0-55 Serum or plasma protein measurement (mass/volume) 7.0 g/dL 6.4-8.2 Serum or plasma albumin measurement (mass/volume) 4.0 g/dL 3.2-4.5 CALCIUM CORRECTED 9.4 mg/dL 8.5-10.1 Encounters ACCT No. Visit Date/Time Discharge Status Pt. Type Provider Facility Loc./Unit Complaint [id number] 11/05/2019 14:09:00 23:59:59 CLS Outpatient MIN HERNANDEZ APRN [facility] RAD ABN LEVELS OF OTHER SER UM ENZYMES [id number] 10/24/2019 13:13:00 23:59:59 CLS Outpatient ASHLIE GONZALEZ APRN [facility] RAD TOBACCO USE [id number] 04/17/2019 09:23:00 23:59:59 CLS Outpatient MARIA DEL ROSARIO HUMPHREY MD [facility] PULM COPD [id number] 04/02/2019 19:35:00 10:52:00 DIS Inpatient MARIA DEL ROSARIO HUMPHREY MD [facility] 4TH COPD EXACERBATION [id number] 02/26/2019 10:01:00 23:59:59 CLS Outpatient ABDIFATAH CERRATO DO, [facility] RAD OSTEOPOROSIS M81.0 [id number] 08/22/2018 11:04:00 23:59:59 CLS Preadmit ASHLIE GONZALEZ HAMMER ADJUSTER [facility] RAD TOBACCO USE [id number] 07/30/2018 11:58:00 23:59:59 CLS Outpatient ASHLIE GONZALEZ HAMMER ADJUSTER [facility] RAD OTHER ABNORMALI TIES OF BREATHING [id number] 07/16/2018 15:25:00 23:59:59 CLS Preadmit ASHLIE GONZALEZ HAMMER ADJUSTER [facility] RT OTHER ABNORMALI TIES OF BREATHING [id number] 07/04/2018 07:30:00 17:00:00 DIS Outpatient MI BAILEY MD [facility] CATH ABD STRESS TEST,CP,CAD,TOBACCOISM,HLP [id number] 06/29/2018 08:07:00 23:59:59 CLS Outpatient MIN HERNANDEZ APRN [facility] RAD SCREENING [id number] 03/19/2018 10:06:00 23:59:59 CLS Outpatient MIN HERNANDEZ HAMMER ADJUSTER [facility] RAD UNEXPLAINED WEIGHT LOSS [id number] 02/26/2018 07:41:00 23:59:59 CLS Outpatient MI BAILEY MD [facility] CARD 1ST DEGREE AV BLOCK,CAD ,CHEST PAIN SYNDROME [id number] 02/23/2018 10:24:00 23:59:59 CLS Outpatient MI BAILEY MD [facility] CARD 1ST DEGREE AV BLOCK,CAD ,CHEST PAIN SYNDROME [id number] 06/20/2017 07:54:00 23:59:59 CLS Outpatient MIN HERNANDEZ HAMMER ADJUSTER [facility] RAD ANNUAL EXAM [id number] 06/15/2017 14:25:00 23:59:59 CLS Preadmit MIN HERNANDEZ L HAMMER ADJUSTER [facility] RAD SMOKING HISTORY 34+YEAR S [id number] 06/09/2016 10:29:00 23:59:59 CLS Outpatient BITA LISA APRN [facility] RAD SCREENING [id number] 05/18/2016 07:45:00 15:45:00 DIS Outpatient MI BAILEY MD [facility] ABN STRESS TEST,CAD,HTN [id number] 05/11/2016 09:27:00 23:59:59 CLS Outpatient MI BAILEY MD [facility] CARD CAD,HTN [id number] 01/11/2016 08:14:00 11:15:00 DIS Outpatient DENISSE BARGER MD [facility] CHANGE IN BOWEL HABITS [id number] 01/07/2016 05:43:00 13:22:00 DIS Outpatient DENISSE BARGER MD [facility] PREOP CHANGE IN BOWEL HABITS [id number] 10/05/2015 18:05:00 19:15:00 DIS Emergency PATTI GANDHI DO [facility] ER L FOOT/ANKLE INJ [id number] 12/24/2014 07:53:00 23:59:59 CLS Outpatient PATTI HATFIELD DO [facility] RAD SCREENING [id number] 07/21/2014 18:00:00 17:07:00 DIS Outpatient MI BAILEY MD [facility] CATH CHEST PAIN; H/O CAD [id number] 11/27/2013 11:37:00 10:20:00 DIS Outpatient MI BAILEY MD [facility] CATH CP,HTN,HLP,TOBACCOISM,O BESITY,1ST DEGREE AV BLOCK [id number] 11/01/2013 06:24:00 23:59:59 CLS Outpatient PATTI HATFIELD DO [facility] CARD CHEST PAIN [id number] 10/08/2013 06:59:00 23:59:59 CLS Outpatient MADYSON OLSEN MD [facility] CARD CHEST PAIN [id number] 10/07/2013 10:18:00 014 23:59:59 CLS Outpatient MADYSON OLSEN MD [facility] CARD CHEST PAIN [id number] 08/26/2013 17:37:00 014 14:15:00 DIS Inpatient PATTI HATFIELD DO [facility] ICU A TYPICAL CHEST PAIN [id number] 08/02/2013 07:08:00 014 23:59:59 CLS Outpatient ALYSIA MEDINA PATTI Valeria [facility] RAD SCREENING [id number] 06/16/2017 13:43:00 Document Registration [id number] 12/01/2015 09:26:00 Document Registration [id number] 12/01/2015 09:26:00 Document Registration [id number] 12/01/2015 09:26:00 Document Registration [id number] 12/01/2015 09:26:00 Document Registration [id number] 12/01/2015 09:26:00 Document Registration [id number] 09/06/2012 22:20:00 Document Registration [id number] 05/23/2012 19:39:00 Document Registration [id number] 04/22/2012 10:44:00 Document Registration [id number] 04/09/2012 09:39:00 Document Registration [id number] 04/06/2012 08:14:00 Document Registration [id number] 02/08/2012 07:14:00 Document Registration [id number] 09/07/2011 08:08:00 Document Registration [id number] 01/19/2011 07:57:00 Document Registration [id number] 01/11/2011 07:10:00 Document Registration [id number] 10/28/2010 23:09:00 Document Registration [id number] 01/21/2010 16:05:00 Document Registration [id number] 01/20/2010 09:49:00 Document Registration [id number] 01/14/2010 08:52:00 Document Registration [id number] 01/08/2010 08:23:00 Document Registration [id number] 11/30/2009 11:55:00 Document Registration [id number] 11/20/2009 09:47:00 Document Registration [id number] 05/23/2008 09:53:00 Document Registration [id number] 02/22/2008 06:56:00 Document Registration [id number] 10/20/2006 10:15:00 Document Registration
[2019-12-29 19:55] LABS: BASOPHILS # (AUTO) 0.1 10^3/uL (0.0-0.1); BASOPHILS % (AUTO) 1 % (0-10); EOSINOPHILS # (AUTO) 0.3 10^3/uL (0.0-0.3); EOSINOPHILS % (AUTO) 3 % (0-10); HEMATOCRIT 46 % (35-52); HEMOGLOBIN 15.7 G/DL (11.5-16.0); LYMPHOCYTES # (AUTO) 3.6 X 10^3 (1.0-4.0); LYMPHOCYTES % (AUTO) 30 % (12-44); MEAN CORPUSCULAR HEMOGLOBIN 30 PG (25-34); MEAN CORPUSCULAR HGB CONC 34 G/DL (32-36); MEAN CORPUSCULAR VOLUME 89 FL (80-99); MEAN PLATELET VOLUME 9.9 FL (7.4-10.4); MONOCYTES # (AUTO) 0.6 X 10^3 (0.0-1.0); MONOCYTES % (AUTO) 5 % (0-12); NEUTROPHILS # (AUTO) 7.4 X 10^3 (1.8-7.8); NEUTROPHILS % (AUTO) 62 % (42-75); PLATELET COUNT 372 10^3/uL (130-400); RED CELL DISTRIBUTION WIDTH 13.9 % (10.0-14.5); WHITE BLOOD COUNT 11.9 10^3/uL (4.3-11.0)
--- NOTE | 2019-12-29 19:57 | ED Cough/URI ---
General Chief Complaint: Coughing Up Blood Stated Complaint: COUGHING UP BLOOD History of Present Illness Date Seen by Provider: Dec 29, 2019 Time Seen by Provider: 19:30 Initial Comments 59-year-old female presents for hemoptysis, began 15-20 min ago, 3 episodes of coughing with dark red blood noted on napkin. She has a long- standing history of COPD and smokes approximately one pack of cigarettes daily. Reports she has been feeling better today and less SOA than normal with exertion. She does not take anticoagulant she does take aspirin 81 mg daily. No history of lung cancer, hemoptysis or PEs. She wears oxygen at night. She has been staying home, isolating and wearing a mask if she does have to go out of her home. She sees Dr. Schroeder for COPD. No nausea or vomiting Timing/Duration: just prior to arrival Severity/Quality: moderate, productive cough Prior Episodes/Possible Cause: no prior episodes Associated Symptoms: cough, shortness of breath (Chronic, no worse today. ) Allergies and Home Medications Allergies Coded Allergies: Cephalosporins (Verified Allergy, Severe, EDEMA, 07/21/14) tetracycline (Verified Allergy, Unknown, SUN STROKE, 07/21/14) Home Medications Albuterol Sulfate 1 Puff Puff, 2 PUFF INH Q4H PRN for SHORTNESS OF BREATH, (Reported) 1 PUFF = 90 MCG Albuterol Sulfate 2.5 Mg/3 Ml Vial.neb, 2.5 MG NEB Q4H PRN for SHORTNESS OF BREATH, (Reported) Amlodipine Besylate 5 Mg Tablet, 5 MG PO HS, (Reported) Aspirin 81 Mg Tablet.dr, 81 MG PO HS, (Reported) Atorvastatin Calcium 20 Mg Tablet, 20 MG PO HS, (Reported) Fluticasone/Umeclidin/Vilanter 1 Each Blst.w.dev, 1 PUFF INH 1200, (Reported) Levothyroxine Sodium 75 Mcg Tablet, 75 MCG PO DAILY, (Reported) Pantoprazole Sodium 40 Mg Tablet.dr, 20 MG PO HS, (Reported) TAKES 1/2 (40MG) TABLET Teriparatide 600 Mcg/2.4 Ml Syr, 20 MCG SC 1730, (Reported) Patient Home Medication List Home Medication List Reviewed: Yes Review of Systems Review of Systems Constitutional: no symptoms reported, see HPI; No fever, No malaise, No weakness EENTM: see HPI, no symptoms reported Respiratory: see HPI, cough, dyspnea on exertion, hemoptysis Cardiovascular: no symptoms reported, see HPI; No chest pain Gastrointestinal: no symptoms reported, see HPI Genitourinary: no symptoms reported, see HPI Musculoskeletal: no symptoms reported, see HPI Skin: no symptoms reported, see HPI All Other Systems Reviewed Negative Unless Noted: Yes Past Yhtxtvr-Xhrmgb-Lcsyzr Hx Past Med/Social Hx: Reviewed Nursing Past Med/Soc Hx Patient Social History Alcohol Beverage of Choice: Wine Type Used: Cigarettes Recent Foreign Travel: No Contact w/Someone Who Travel: No Immunizations Up To Date Date of Pneumonia Vaccine: Jun 12, 2011 Date of Influenza Vaccine: Mar 29, 2019 Seasonal Allergies Seasonal Allergies: No Past Medical History Surgeries: Yes (CATH AND STENT, L KNEE SCOPE, LEFT ARM SHORTENED, LEFT TOE, right shoulder) Adenoidectomy, Appendectomy, Coronary Stent, Gallbladder, Hysterectomy, Orthopedic, Tonsillectomy Respiratory: Yes COPD Cardiac: Yes Coronary Artery Disease, Hypertension Neurological: No Reproductive Disorders: No Female Reproductive Disorders: Denies Sexually Transmitted Disease: No HIV/AIDS: No Genitourinary: No Gastrointestinal: Yes Diverticulosis Musculoskeletal: No Endocrine: Yes (THYROID PROBLEMS) Cancer: Yes (skin) Did You Recieve Any Treatments: No Psychosocial: No Integumentary: No Blood Disorders: No Family Medical History Stroke 03 MOTHER CVA, Renal Disease Physical Exam Vital Signs - First Documented Capillary Refill : Height: 5'6.00" Weight: 124lbs. 0.2oz. [id number]; 19.52 BMI Method:Stated General Appearance: WD/WN, no apparent distress Eyes: Bilateral Eye Normal Inspection, Bilateral Eye PERRL, Bilateral Eye EOMI HEENT: PERRL/EOMI, normal ENT inspection, TMs normal, pharynx normal Neck: non-tender, full range of motion, supple, normal inspection Respiratory: chest non-tender, lungs clear, normal breath sounds Cardiovascular: normal peripheral pulses, regular rate, rhythm Gastrointestinal: normal bowel sounds, non tender, soft Extremities: normal range of motion, non-tender, normal inspection, no pedal edema, no calf tenderness, normal capillary refill Neurologic/Psychiatric: no motor/sensory deficits, alert, normal mood/affect, oriented x 3 Skin: normal color, warm/dry Progress/Results/Core Measures Suspected Sepsis SIRS Temperature: Pulse: Respiratory Rate: Laboratory Tests 12/29/19 19:40: White Blood Count 11.9H Blood Pressure / Mean: Laboratory Tests 12/29/19 19:40: Creatinine 0.89, INR Comment 1.0, Platelet Count 372, Total Bilirubin 0.4 Results/Orders Lab Results Laboratory Tests Test 12/29/19 19:40 Range/Units White Blood Count 11.9 H 4.3-11.0 10^3/uL Red Blood Count 5.16 4.35-5.85 10^6/uL Hemoglobin 15.7 11.5-16.0 G/DL Hematocrit 46 35-52 % Mean Corpuscular Volume 89 80-99 FL Mean Corpuscular Hemoglobin 30 25-34 PG Mean Corpuscular Hemoglobin Concent 34 32-36 G/DL Red Cell Distribution Width 13.9 10.0-14.5 % Platelet Count 372 130-400 10^3/uL Mean Platelet Volume 9.9 7.4-10.4 FL Neutrophils (%) (Auto) 62 42-75 % Lymphocytes (%) (Auto) 30 12-44 % Monocytes (%) (Auto) 5 0-12 % Eosinophils (%) (Auto) 3 0-10 % Basophils (%) (Auto) 1 0-10 % Neutrophils # (Auto) 7.4 1.8-7.8 X 10^3 Lymphocytes # (Auto) 3.6 1.0-4.0 X 10^3 Monocytes # (Auto) 0.6 0.0-1.0 X 10^3 Eosinophils # (Auto) 0.3 0.0-0.3 10^3/uL Basophils # (Auto) 0.1 0.0-0.1 10^3/uL Neutrophils % (Manual) 60 % Lymphocytes % (Manual) 29 % Monocytes % (Manual) 7 % Eosinophils % (Manual) 3 % Band Neutrophils 1 % Prothrombin Time 13.7 12.2-14.7 SEC INR Comment 1.0 0.8-1.4 Activated Partial Thromboplast Time 30 24-35 SEC Sodium Level 139 135-145 MMOL/L Potassium Level 3.1 L 3.6-5.0 MMOL/L Chloride Level 102 98-107 MMOL/L Carbon Dioxide Level 24 21-32 MMOL/L Anion Gap 13 5-14 MMOL/L Blood Urea Nitrogen 4 L 7-18 MG/DL Creatinine 0.89 0.60-1.30 MG/DL Estimat Glomerular Filtration Rate > 60 BUN/Creatinine Ratio 4 Glucose Level 124 H 70-105 MG/DL Calcium Level 9.7 8.5-10.1 MG/DL Corrected Calcium 9.4 8.5-10.1 MG/DL Total Bilirubin 0.4 0.1-1.0 MG/DL Aspartate Amino Transf (AST/SGOT) 10 5-34 U/L Alanine Aminotransferase (ALT/SGPT) 11 0-55 U/L Alkaline Phosphatase 128 40-136 U/L Troponin I < 0.028 <0.028 NG/ML C-Reactive Protein High Sensitivity 0.64 H 0.00-0.50 MG/DL B-Type Natriuretic Peptide 19.4 <100.0 PG/ML Total Protein 7.7 6.4-8.2 GM/DL Albumin 4.4 3.2-4.5 GM/DL My Orders Orders - TREVOR FOSS ROLL FORM OPERATOR BNP (12/29/19 19:33) Cbc With Automated Diff (12/29/19 19:33) Comprehensive Metabolic Panel (12/29/19 19:33) Hs C Reactive Protein (12/29/19 19:33) Protime With Inr (12/29/19 19:33) Partial Thromboplastin Time (12/29/19 19:33) Troponin I (12/29/19 19:33) Chest 1 View, Ap/Pa Only (12/29/19 19:33) Ekg Tracing (12/29/19 19:41) Manual Differential (12/29/19 19:40) Vital Signs/I&O 12/29/19 12/29/19 19:35 19:35 Temp 36.9 Pulse 103 Resp 18 B/P (MAP) 158/115 (129) Pulse Ox 95 O2 Delivery Room Air Room Air Capillary Refill : Progress Note : Time: 19:30 Progress Note Patient seen and evaluated, will obtain labs, EKG and chest x-ray. 2014 no further episodes of hemoptysis since admission. Patient reports no shortness of air. Vital signs are stable blood pressure is normotensive. 2029 discharge instructions and return precautions reviewed with the patient. All questions answered. ECG Initial ECG Impression Date: Dec 29, 2019 Initial ECG Impression Time: 19:46 Initial ECG Rate: 86 Initial ECG Rhythm: Normal Sinus Initial ECG Intervals: Normal Initial ECG Intervals ID 201, QRSD 101, QT 389, QTC 466. Lorenzo P 75, QRS 75, T 36. Initial ECG Impression: Normal Initial ECG Comparisson: Unchanged Diagnostic Imaging Diagonstic Imaging: Xray Plain Films/CT/US/NM/MRI: chest Comments NAME: RISA HI [facility] REC#: [id number] PT STATUS: REG ER : 1960 PHYSICIAN: TREVOR FOSS ADMIT DATE: 12/29/19/ER Draft Date of Exam:12/29/19 CHEST 1 VIEW, AP/PA ONLY INDICATION: Hemoptysis. EXAMINATION: Portable erect AP chest at 8:05 p.m. FINDINGS: The heart size is within normal limits and stable when compared to 04/03/2019. The lungs are generally clear. There is no evidence for failure, pneumonia or for a pleural effusion. The mediastinum is not widened. The osseous structures are intact. IMPRESSION: There is no evidence for an acute cardiopulmonary abnormality. Dictated on workstation # [id number] Dict: 12/29/192026 Trans: 12/29/192037 [facility] [id number] Interpreted by: ABDIFATAH GOFF MD Electronically signed by: Reviewed: Reviewed by Me Departure Impression Primary Impression: Hemoptysis Additional Impression: Emphysema lung Qualified Codes: J43.9 - Emphysema, unspecified Disposition: 01 HOME, SELF-CARE Condition: Improved Departure-Patient Inst. Decision time for Depature: 20:30 Referrals: CHAD SCHROEDER WILLIAM J DO (PCP/Family) Primary Care Physician Patient Instructions: Coughing up Blood, Chronic Obstructive Pulmonary Disease (COPD) (DC) Add. Discharge Instructions: Monitor for blood in sputum, if continues follow up with Dr. Schroeder. Continue home medications as previously prescribed. Eat 1-2 bananas daily, your potassium was slightly lower than normal. Return to the emergency department for new, urgent health care needs. All discharge instructions reviewed with patient and/or family. Voiced understanding. Copy Copies To 1: CHAD SCHROEDER AMY ARNP Dec 29, 2019 19:56
[2019-12-29 20:02] LABS: PROTHROMBIN TIME PATIENT 13.7 SEC (12.2-14.7)
[2019-12-29 20:11] LABS: ALANINE AMINOTRANSFERASE 11 U/L (0-55); ALBUMIN 4.4 GM/DL (3.2-4.5); ALKALINE PHOSPHATASE 128 U/L (40-136); BILIRUBIN,TOTAL 0.4 MG/DL (0.1-1.0); BUN/CREATININE RATIO 4; CALCIUM 9.7 MG/DL (8.5-10.1); CARBON DIOXIDE 24 MMOL/L (21-32); CREATININE SERUM 0.89 MG/DL (0.60-1.30); GFR ESTIMATED > 60; GLUCOSE 124 MG/DL (70-105); TOTAL PROTEIN 7.7 GM/DL (6.4-8.2)
[2019-12-29 20:21] LABS: BAND NEUTROPHILS 1 %; EOSINOPHILS % (MANUAL) 3 %; LYMPHOCYTES % (MANUAL) 29 %; MONOCYTES % (MANUAL) 7 %; NEUTROPHILS % (MANUAL) 60 %
[2019-12-29 20:26] LABS: CHLORIDE 102 MMOL/L (98-107); POTASSIUM 3.1 MMOL/L (3.6-5.0); SODIUM 139 MMOL/L (135-145)
--- NOTE | 2019-12-29 20:39 | Diagnostic Imaging Report ---
INDICATION: Hemoptysis. EXAMINATION: Portable erect AP chest at 8:05 p.m. FINDINGS: The heart size is within normal limits and stable when compared to 04/03/2019. The lungs are generally clear. There is no evidence for failure, pneumonia or for a pleural effusion. The mediastinum is not widened. The osseous structures are intact. IMPRESSION: There is no evidence for an acute cardiopulmonary abnormality. Dictated by: Dictated on workstation # [id number]
[2019-12-29 20:45] VITALS: BP 124/82
== END 2019-12-29 20:50 | disposition home or self-care (01) ==
LOC: EDUNIT# 19:26 → ER 19:28
DX: R04.2 Hemoptysis (principal); J43.9 Emphysema, unspecified; I25.10 Atherosclerotic heart disease of native coronary artery without angina pectoris; I10 Essential (primary) hypertension; F17.210 Nicotine dependence, cigarettes, uncomplicated; Z79.82 Long term (current) use of aspirin; Z88.1 Allergy status to other antibiotic agents; Z79.51 Long term (current) use of inhaled steroids; Z95.5 Presence of coronary angioplasty implant and graft
CPT/HCPCS: 36415; 71045; 80053; 83880; 84484; 85007; 85027; 85610; 85730; 86141; 93005

== ENCOUNTER → 2021-03-24 | Outpatient (CLI) | payer OTHER ==
[~2021-03-24] VITALS: Ht 167 cm; Wt 57.0 kg
[~2021-03-24] MED LIST changes: +AMLO-250 PO; -AMLO5TAB9 PO; +ASPI-1238 PO; -ASPI-983 PO; +CATHETER FLUSH 10 ML SYR IV PRN; +ESCI-2 PO; -ESCI10TA55 PO; -PANT40TA3 PO; +PANT40TA52 PO; +REGADENOSON 0.4 MG/5 ML SYR (LEXISCAN) IV ONE
[2021-03-24 09:12] VITALS: BP 142/103
--- NOTE | 2021-03-24 12:42 | Cardiology Stress Test Report ---
Stress Test Report Date of Procedure/Referring: Date of Procedure: Mar 24, 2021 Evy Kelley Admitting Physician Patti Aquino DO Indications: CAD Baseline Heart Rate: 77 Baseline Blood Pressure: Blood Pressure Systolic: 142 Blood Pressure Diastolic: 103 Baseline Vitals Vital Signs Date Time Temp Pulse Resp B/P (MAP) Pulse Ox O2 Delivery O2 Flow Rate FiO2 03/24/21 09:12 74 18 142/103 (116) 97 Room Air Baseline EKG: Baseline EKG: NSR Summary After explaining the procedure to the patient, she signed a consent and then brought to the stress nuclear laboratory. Patient received 0.4 mg Lexiscan for stress test, ECG, heart rate and blood pressure were monitored continuously. Resting and stress dose of radio tracer were injected, imaging was acquired and reviewed in short axis, horizontal long axis and vertical long axis views. TID: 0.99 SSS: 4 SDS: 4 EF: 70 1. Patient tolerated Lexiscan well 2. Breast attenuation with reversible ischemia involving the mid to apical inferior wall and true apex 3. Normal left ventricular size, ejection fraction 70 per Copy Copies To 1: PATTI AQUINO BASHAR J MD Mar 24, 2021 12:42
== END ==
LOC: CARD 08:00
PROVIDERS: ATTEND Physician Assistant
DX: I25.10 Atherosclerotic heart disease of native coronary artery without angina pectoris (principal)
CPT/HCPCS: 78452; 93017; A9502

== ENCOUNTER 2021-04-07 09:00 | Day surgery (SDC) | payer OTHER ==
[~2021-04-07] VITALS: Ht 167.6 cm; Wt 57.8 kg
[2021-04-07 07:29] VITALS: BP 132/77
[2021-04-07 07:36] LABS: BILIRUBIN,URINE NEGATIVE (NEGATIVE); CLARITY,URINE CLEAR; COLOR,URINE YELLOW; GLUCOSE, URINE (UA) NEGATIVE (NEGATIVE); KETONES,URINE NEGATIVE (NEGATIVE); LEUKOCYTE ESTERASE ,URINE TRACE (NEGATIVE); NITRITE,URINE NEGATIVE (NEGATIVE); PROTEIN,URINE NEGATIVE (NEGATIVE)
[2021-04-07 07:39] LABS: HEMATOCRIT 45 % (35-52); HEMOGLOBIN 14.5 g/dL (11.5-16.0); MEAN CORPUSCULAR HEMOGLOBIN 30 pg (25-34); MEAN CORPUSCULAR HGB CONC 32 g/dL (32-36); MEAN CORPUSCULAR VOLUME 93 fL (80-99); MEAN PLATELET VOLUME 9.3 fL (9.0-12.2); PLATELET COUNT 387 10^3/uL (130-400); WHITE BLOOD COUNT 5.6 10^3/uL (4.3-11.0)
[2021-04-07 07:45] LABS: BACTERIA,URINE TRACE /HPF; WBC,URINE 0-2 /HPF
--- NOTE | 2021-04-07 07:49 | Diagnostic Imaging Report ---
Indication: Chest pain. Abnormal stress test. Comparison with 12/29/2019. FINDINGS: Portable chest. The lungs are well-aerated and clear. There is no air-trapping. The heart is not enlarged. There is no pulmonary edema or hilar adenopathy. No pneumothorax or pleural effusion. No bony abnormalities. IMPRESSION: Normal portable chest. Dictated by: Dictated on workstation # [id number]
[2021-04-07 07:57] LABS: PROTHROMBIN TIME PATIENT 13.4 SEC (12.2-14.7)
[2021-04-07 07:58] LABS: BILIRUBIN,TOTAL 0.3 MG/DL (0.1-1.0); CALCIUM 9.4 MG/DL (8.5-10.1); CREATININE SERUM 0.92 MG/DL (0.60-1.30); TOTAL PROTEIN 7.2 GM/DL (6.4-8.2)
[~2021-04-07 09:00] MED LIST changes: +BUPR150T24 PO; -CATHETER FLUSH 10 ML SYR IV PRN; +CYAN500T8 PO; +FLUT1BLS3 IH; +HEParin (CATH LAB) 2,000 ML IV ONE; +LEVO88TA68 PO; +LIDOCAINE 1% INJ 20 ML 20 ML VIAL ONE; +MULT-1136 PO; +NS IV 1000 ML 1,000 ML IV SCH; +NS IV 1000 ML 1,000 ML ONE; +PANT20TA18 PO; -REGADENOSON 0.4 MG/5 ML SYR (LEXISCAN) IV ONE
[2021-04-07] MEDS ORDERED: fentaNYL INJ 100 MCG/2 ML AMP ONE (09:04)
[2021-04-07] MEDS ORDERED: HEParin 1000 UNIT/ML (10ML VIAL) FOR BOLUS ONE (09:04)
[2021-04-07] MEDS ORDERED: MIDAZOLAM 5 MG/5 ML (VERSED) VIAL ONE (09:04)
[2021-04-07] MEDS ORDERED: VERAPAMIL 5 MG/2 ML (CALAN) VIAL IV ONE (09:04)
[2021-04-07] MEDS ORDERED: NITRO DRIP 25000 MCG/D5W 250 ML IV ONE (09:04)
--- NOTE | 2021-04-07 09:21 | Conscious Sedation/ASA ---
Conscious Sedation Pre-Proced Time 09:21 ASA Score 3 For ASA 3 and 4: Consider anesthesia and medical clearance. Also, for patients with a history of failed moderate sedation consider anesthesia. Airway Lungs Heart ASA score ASA 1: a normal healthy patient ASA 2: a patient with a mild systemic disease (mid diabetes, controlled hypertension, obesity x ASA 3: a patient with a severe systemic disease that limits activity (angina, COPD, prior Myocardial infarction) ASA 4: a patient with an incapacitating disease that is a constant threat to life (CHF, renal failure) ASA 5: a moribund patient not expected to survive 24 hrs. (ruptured aneurysm) ASA 6: a declared brain- patient whose organs are being harvested. For emergent operations, add the letter E after the classification Mallampati Classification Grade 3 Sedation Plan Analgesia, Amnesia, Plan communicated to team members, Discussed options with patient/fam, Discussed risks with patient/fam The patient is an appropriate candidate to undergo the planned procedure, sedation, and anesthesia. The patient immediately re-assessed prior to indication. MI BAILEY MD Apr 07, 2021 09:21
[2021-04-07] MEDS ORDERED: CLOPIDOGREL 300 MG (PLAVIX) TABLET PO ONE (10:01)
[2021-04-07] MEDS ORDERED: ASPIRIN 325 MG (5 GR) TABLET ONE (10:01)
--- NOTE | 2021-04-07 10:08 | Cardiac Cath Report ---
Cardiac Cath Report Physician (s)/Electronics Installer (s) Physician MI BAILEY MD Pre-Procedure Diagnosis Pre-Procedure Diagnosis: coronary artery disease Post-Procedure Note Procedure Start Date: Apr 07, 2021 Name of Procedure: Left heart catheterization Stenting to the right coronary artery Findings/Procedure Note PROCEDURE NOTE: 60-year-old lady with history of coronary artery disease mild to moderate disease, had an abnormal stress test, has been having chest pain, scheduled for cardiac catheterization possible PTCA. After explaining the procedure to the patient, all pros and cons were explained, all questions were answered. The patient signed the consent and then she was placed on the cardiac catheterization laboratory. Groin was prepped SL fashion local anesthesia was used. Sheath placed in the right radial artery, [place] ca theter was advanced to the right and left coronary system angiogram was done. Patient was noted to have severe stenosis in the proximal to mid right coronary artery. Decision to proceed with percutaneous intervention Patient received total of 6000 units of heparin, JR guide with sideholes was advanced to the left ventricular cavity, pressure was measured then pullback was done. Intubated the right coronary artery and advanced the wire, I tried primary stenting and I was unable to advance the stent due to the severe stenosis. I proceeded with predilatation using trek 2.5 x 20 mm with 3 inflations then proceeded with deployment of Patsy 2.5 x 23 mm expanded to 2.77 mm under 14 jefferson with excellent results. At the end of the procedure the sheath was removed. Vascular band deployed FINDINGS: Hemodynamics LV 112/16, end-diastolic pressure of 16 Aorta 110/65 mean of 85 ANATOMY: Left Main is free of obstructive disease Left Anterior Descending has mild to moderate disease nonobstructive disease Left Circumflex has mild disease nonobstructive disease Right Coronary Artery has moderate to severe stenosis in the proximal to mid right coronary artery, I was unable to advance a stent due to the severity of the lesion, predilatation with trek 2.5 x 20 mm followed by deployment of Patsy 2.5 x 23 mm expanded to 2.75 mm with excellent results LV Gram was not done, pressure was measured CONCLUSION: 1. Severe stenosis in the proximal to mid right coronary artery with successful deployment of Patsy 2.5 x 23 mm expanded to 2.77 mm with excellent results. 2. Mild to moderate disease in the mid LAD, nonobstructive disease, mild disease in the circumflex artery 3. Normal left ventricular end-diastolic pressure DISCUSSION AND RECOMMENDATION: Patient was loaded with aspirin and Plavix, continue to maximize medical therapy and monitor Anesthesia Type: Conscious Sedation Estimated blood loss (mL): 25 ml Contrast Amount: 82 ml Total Radiation Dose: 360 mGy Post-Procedure Diagnosis Post-operative diagnosis: Chest pain Coronary artery disease Hypertension Hyperlipidemia MI BAILEY MD Apr 07, 2021 10:08
[2021-04-07] MEDS ORDERED: RT-ALBUTEROL SULF 2.5 MG/3 ML PRE-MIX VIAL IH PRN (10:15)
[2021-04-07] MEDS ORDERED: RT-ALBUTEROL SULF 2.5 MG/3 ML PRE-MIX VIAL INH PRN (10:15)
[2021-04-07] MEDS ORDERED: NS IV 1000 ML 1,000 ML IV SCH (10:15)
[2021-04-07 10:30] VITALS: BP 111/68
[2021-04-07 13:00] VITALS: BP 119/74
[2021-04-07] MEDS ORDERED: CLOP75TA28 PO (13:50)
--- NOTE | 2021-04-07 13:51 | Discharge Inst-Post CATH ---
Discharge Inst-CATH/EP Problems Reviewed?: Yes Post Cardiac Cath/EP D/C Inst Follow Up/Plan Appointment with Dr. Bello's office in 2 to 4 weeks <b>CARDIAC CATH/EP PROCEDURE DISCHARGE INSTRUCTIONS</b> ACTIVITY * Go Home directly and rest. * Limit activity of the leg (or wrist if it was used) for 7 days including aer obics, swimming, jogging, bicycling, etc. * Restrict stair-climbing for 7 days if possible, if not, climb up with your non-cath leg, then bring together on the same step. * Avoid lifting, pushing, pulling or excessive movement of the affected extremi ty for 7 days. * Customary sexual activity may be resumed after 2 days-use caution not to use a position that strains or causes pain to the affected extremity. * No driving for 24 hours. * NO SMOKING. * Avoid straining for bowel movements for 7 days. * Gentle walking on level ground is allowed. * Returning to work will depend on the type of procedure and the results. Your doctor will discuss this with you. CALL YOUR DOCTOR FOR ANY OF THE FOLLOWING: *If bleeding from the puncture site occurs- Apply gentle pressure to site with clean cloth and call your doctor or EMS. * If a knot or lump forms under the skin, increases in size, or causes pain. * If bruising appears to be worsening or moving further down your leg instead of disappearing. * Temperature above 101 F. CARE OF YOUR GROIN INCISION; * Bruising or purple discoloration of the skin near the puncture site is common. * You may shower only, no bathtub bathing for 5 days. Be careful to avoid slipping as your leg may feel stiff. * If a closure device was used on your femoral artery, please see the attached guide regarding care of the device and your leg. * Leave dressing on FOR 24 hours. CARE OF YOUR WRIST INCISION; * Bruising or purple discoloration of the skin near the puncture site is common. * You may shower. * DO NOT submerge wrist. * Leave dressing on FOR 24 hours. MI BELLO MD Apr 07, 2021 13:51
[2021-04-07 15:52] VITALS: BP 122/71
[2021-04-07 17:55] VITALS: BP 135/79
[2021-04-07] MEDS ORDERED: amLODIPine 5 MG (NORVASC) TAB PO SCH (21:00)
[2021-04-07] MEDS ORDERED: PANTOPRAZOLE 20 MG TABLET (PROTONIX) PO SCH (21:00)
[2021-04-07] MEDS ORDERED: RT--FLUTICASONE/SALMETEROL 232-14 (AIRDUO RespiCLICK) IH SCH (21:00)
[2021-04-07] MEDS ORDERED: buPROPion SR 150 MG (WELLBUTRIN SR) TAB PO SCH (21:00)
[2021-04-08] MEDS ORDERED: UMECLIDINIUM BROMIDE (INCRUSE ELLIPTA) 7'S IH SCH (08:00)
[2021-04-08] MEDS ORDERED: CYANOCOBALAMIN 1,000 MCG (VITAMIN B-12) TABLET PO SCH (09:00)
[2021-04-08] MEDS ORDERED: LEVOTHYROXINE 88 MCG (LEVOTHORID) TAB PO SCH (09:00)
[2021-04-08] MEDS ORDERED: MULTIVIT W/MINERALS TAB (THERAGRAN M) PO SCH (09:00)
[2021-04-08] MEDS ORDERED: ASPIRIN E.C. 81 MG (ECOTRIN) TAB PO SCH (09:00)
[2021-04-08] MEDS ORDERED: CLOPIDOGREL 75 MG (PLAVIX) TABLET PO SCH (09:00)
== END 2021-04-07 18:00 | disposition home or self-care (01) ==
LOC: CATH 09:00 → CSD 10:20 → CATH 18:00
PROVIDERS: ATTEND Internal Medicine Cardiovascular Disease
DX: I25.10 Atherosclerotic heart disease of native coronary artery without angina pectoris (principal); I10 Essential (primary) hypertension; I44.30 Unspecified atrioventricular block; J42 Unspecified chronic bronchitis; E78.2 Mixed hyperlipidemia; Z79.82 Long term (current) use of aspirin; Z79.899 Other long term (current) drug therapy
CPT/HCPCS: 71045; 80053; 80061; 81000; 85027; 85610; 85730; 87081; 93458; C1725; C1769; C1874; C1894; C9600; 36415

== ENCOUNTER → 2023-01-30 | Outpatient (CLI) | payer OTHER ==
[~2023-01-30] VITALS: Ht 167 cm; Wt 62.0 kg
[~2023-01-30] MED LIST changes: +ALBU8.5H6 IH; +CATHETER FLUSH 10 ML SYR IVP PRN; +CLOP75TA28 PO; -HEParin (CATH LAB) 2,000 ML IV ONE; -LIDOCAINE 1% INJ 20 ML 20 ML VIAL ONE; -NS IV 1000 ML 1,000 ML IV SCH; -NS IV 1000 ML 1,000 ML ONE; +REGADENOSON 0.4 MG/5 ML SYR (LEXISCAN) IV ONE; -RT-ALBUINH IH
[2023-01-30 09:36] VITALS: BP 126/84
--- NOTE | 2023-01-30 12:34 | Cardiology Stress Test Report ---
Stress Test Report Date of Procedure/Referring: Date of Procedure: Jan 30, 2023 PCP Patti Aquino DO Admitting Physician Admitting Physician: Attending Physician: Saul Bello MD Indications: CP Baseline Heart Rate: 76 Baseline Blood Pressure: Blood Pressure Systolic: 126 Blood Pressure Diastolic: 84 Baseline Vitals Vital Signs Date Time Temp Pulse Resp B/P (MAP) Pulse Ox O2 Delivery O2 Flow Rate FiO2 01/30/23 09:36 76 126/84 (98) 98 Baseline EKG: Baseline EKG: NSR Summary After explaining the procedure to the patient, she signed a consent and then brought to the stress nuclear laboratory. Patient received 0.4 mg Lexiscan for stress test, ECG, heart rate and blood pressure were monitored continuously. Resting and stress dose of radio tracer were injected, imaging was acquired and reviewed in short axis, horizontal long axis and vertical long axis views. TID: 1.09 SSS: 7 SDS: 5 EF: 66 Patient tolerated Lexiscan well Reversible ischemia involving the mid to apical inferior wall Normal left ventricular size, ejection fraction 66% Copy Copies To 1: PATTI AQUINO BASHAR J MD Jan 30, 2023 12:34
== END ==
LOC: CARD 08:15
PROVIDERS: ATTEND Internal Medicine Cardiovascular Disease
DX: I10 Essential (primary) hypertension (principal); I25.10 Atherosclerotic heart disease of native coronary artery without angina pectoris
CPT/HCPCS: 78452; 93017; 93306

== ENCOUNTER 2023-02-08 10:32 | Day surgery (SDC) | payer OTHER ==
[~2023-02-08] VITALS: Ht 167.6 cm; Wt 60.3 kg
[2023-02-08] VITALS (10 sets, daily range): BP systolic 104–128; BP diastolic 68–96
[~2023-02-08 10:32] MED LIST changes: -CATHETER FLUSH 10 ML SYR IVP PRN; -REGADENOSON 0.4 MG/5 ML SYR (LEXISCAN) IV ONE
[2023-02-08] MEDS ORDERED: NS IV 1000 ML 1,000 ML IV SCH ×2 (10:45→14:45)
[2023-02-08] MEDS ORDERED: LIDOCAINE 1% INJ 20 ML VIAL ONE (10:49)
[2023-02-08] MEDS ORDERED: HEParin (CATH LAB) 2,000 ML IV ONE (10:50)
[2023-02-08] MEDS ORDERED: NS IV 1000 ML 1,000 ML ONE (10:50)
[2023-02-08 11:26] LABS: HEMATOCRIT 45 % (35-52); MEAN CORPUSCULAR HEMOGLOBIN 29 pg (25-34); MEAN CORPUSCULAR HGB CONC 33 g/dL (32-36); MEAN CORPUSCULAR VOLUME 88 fL (80-99); MEAN PLATELET VOLUME 9.8 fL (9.0-12.2); PLATELET COUNT 390 10^3/uL (130-400); WHITE BLOOD COUNT 8.5 10^3/uL (4.3-11.0)
[2023-02-08 11:38] LABS: INR 0.9 (0.8-1.4); PROTHROMBIN TIME PATIENT 12.8 SEC (12.2-14.7)
[2023-02-08 11:43] LABS: ALBUMIN 4.2 GM/DL (3.2-4.5); BILIRUBIN,TOTAL 0.8 MG/DL (0.1-1.0); CALCIUM 9.3 MG/DL (8.5-10.1); CREATININE SERUM 0.97 MG/DL (0.60-1.30); POTASSIUM 4.3 MMOL/L (3.6-5.0); TOTAL PROTEIN 6.9 GM/DL (6.4-8.2)
[2023-02-08] MEDS ORDERED: ACET325T38 PO (11:45)
[2023-02-08] MEDS ORDERED: IPRA3AMP31 IH (11:45)
[2023-02-08] MEDS ORDERED: DIPH25TA65 PO (11:45)
--- NOTE | 2023-02-08 11:48 | Diagnostic Imaging Report ---
INDICATION: Abnormal stress test, coronary artery disease. Frontal chest obtained at 11:22 a.m. and compared to 04/07/2021. FINDINGS: Heart and mediastinal silhouette are normal in appearance. There is mild hyperinflation compatible with COPD. There is no focal infiltrate or pneumothorax or pleural fluid. IMPRESSION: Mild hyperinflation compatible with COPD. No acute process in the chest. Dictated by: Dictated on workstation # [id number]
[2023-02-08 11:52] LABS: CLARITY,URINE CLEAR; COLOR,URINE YELLOW; PH,URINE 5.5 (5-9)
[2023-02-08 11:53] LABS: BACTERIA,URINE NEGATIVE /HPF; BILIRUBIN,URINE NEGATIVE (NEGATIVE); GLUCOSE, URINE (UA) NEGATIVE (NEGATIVE); KETONES,URINE NEGATIVE (NEGATIVE); LEUKOCYTE ESTERASE ,URINE NEGATIVE (NEGATIVE); NITRITE,URINE NEGATIVE (NEGATIVE); PROTEIN,URINE NEGATIVE (NEGATIVE); SQUAMOUS EPITHELIAL CELL,UR RARE /HPF
--- NOTE | 2023-02-08 13:36 | Cardiac Procedure Note-CS/ASA ---
Pre-Procedure Note Pre-Op Procedure Note Date of Available H&P: Jan 31, 2023 Date H&P Reviewed: Feb 08, 2023 Time H&P Reviewed: 13:36 History & Physical: H&P Reviewed, Patient Examed, No changes noted Pre-Operative Diagnosis: coronary artery disease Moderate Sedation PreProcedure Time 13:36 ASA Score 3 Airway Lungs Heart ASA score ASA 1: a normal healthy patient ASA 2: a patient with a mild systemic disease (mid diabetes, controlled hypertension, obesity ASA 3: a patient with a severe systemic disease that limits activity (angina, COPD, prior Myocardial infarction) ASA 4: a patient with an incapacitating disease that is a constant threat to life (CHF, renal failure) ASA 5: a moribund patient not expected to survive 24 hrs. (ruptured aneurysm) ASA 6: a declared brain- patient whose organs are being harvested. For emergent operations, add the letter E after the classification Mallampati Classification Grade 3 Sedation Plan Analgesia, Amnesia, Plan communicated to team members, Discussed options with patient/fam, Discussed risks with patient/fam The patient is an appropriate candidate to undergo the planned procedure, sedation, and anesthesia. The patient immediately re-assessed prior to indication. MI BAILEY MD Feb 08, 2023 13:36
[2023-02-08] MEDS ORDERED: fentaNYL INJECTION 100 MCG/2 ML VIAL ONE (14:01)
[2023-02-08] MEDS ORDERED: MIDAZOLAM INJ 5 MG/5 ML VIAL ONE (14:02)
[2023-02-08] MEDS ORDERED: HEParin 1000 UNIT/ML (10ML VIAL) FOR BOLUS ONE (14:02)
[2023-02-08] MEDS ORDERED: VERAPAMIL 5 MG/2 ML (CALAN) VIAL IV ONE (14:02)
[2023-02-08] MEDS ORDERED: NITRO DRIP 25000 MCG/D5W 250 ML IV ONE (14:02)
--- NOTE | 2023-02-08 14:41 | Discharge Inst-Post CATH ---
Discharge Inst-CATH/EP Problems Reviewed?: Yes Post Cardiac Cath/EP D/C Inst Follow Up/Plan Appointment with Dr. Bello's office in 2 to 4 weeks <b>CARDIAC CATH/EP PROCEDURE DISCHARGE INSTRUCTIONS</b> ACTIVITY * Go Home directly and rest. * Limit activity of the leg (or wrist if it was used) for 7 days including aer obics, swimming, jogging, bicycling, etc. * Restrict stair-climbing for 7 days if possible, if not, climb up with your non-cath leg, then bring together on the same step. * Avoid lifting, pushing, pulling or excessive movement of the affected extremi ty for 7 days. * Customary sexual activity may be resumed after 2 days-use caution not to use a position that strains or causes pain to the affected extremity. * No driving for 24 hours. * NO SMOKING. * Avoid straining for bowel movements for 7 days. * Gentle walking on level ground is allowed. * Returning to work will depend on the type of procedure and the results. Your doctor will discuss this with you. CALL YOUR DOCTOR FOR ANY OF THE FOLLOWING: *If bleeding from the puncture site occurs- Apply gentle pressure to site with clean cloth and call your doctor or EMS. * If a knot or lump forms under the skin, increases in size, or causes pain. * If bruising appears to be worsening or moving further down your leg instead of disappearing. * Temperature above 101 F. CARE OF YOUR GROIN INCISION; * Bruising or purple discoloration of the skin near the puncture site is common. * You may shower only, no bathtub bathing for 5 days. Be careful to avoid slipping as your leg may feel stiff. * If a closure device was used on your femoral artery, please see the attached guide regarding care of the device and your leg. * Leave dressing on FOR 24 hours. CARE OF YOUR WRIST INCISION; * Bruising or purple discoloration of the skin near the puncture site is common. * You may shower. * DO NOT submerge wrist. * Leave dressing on FOR 24 hours. MI BELLO MD Feb 08, 2023 14:41
--- NOTE | 2023-02-08 14:43 | Cardiac Cath Report ---
Cardiac Cath Report Physician (s)/Hose Cementer (s) Physician MI BAILEY MD Pre-Procedure Diagnosis Pre-Procedure Diagnosis: coronary artery disease Post-Procedure Note Procedure Start Date: Feb 08, 2023 Name of Procedure: Left heart catheterization Findings/Procedure Note PROCEDURE NOTE: 62-year-old lady with history of coronary artery disease, hypertension and hyperlipidemia, had an abnormal stress test, scheduled for cardiac catheterization possible PTCA. After explaining the procedure to the patient, all pros and cons were explained, all questions were answered. The patient signed the consent and then she was placed in the cardiac catheterization laboratory. Groin was prepped in SL fashion local anesthesia was used. Sheath placed in the right radial artery, [place] catheter was advanced to the left ventricular cavity, pressure was measured, pullback LV to aorta was done, engage the right and left coronary system, angiogram was done. At the end of the procedure the sheath was removed. Vascular band was used FINDINGS: Hemodynamics LV 80/11, end-diastolic pressure of 11 Aorta 78/58 mean of 47 ANATOMY: Left Main is free of obstructive disease Left Anterior Descending is slightly tortuous with no obstructive disease Left Circumflex is dominant artery, stent in the obtuse marginal branch is patent otherwise no obstructive disease Right Coronary Artery is nondominant artery, stent in the proximal and mid right coronary artery is patent with no obstructive disease LV Gram was not done, pressure was measured CONCLUSION: Patent stent in the obtuse marginal and right coronary artery, no significant obstructive disease Normal left ventricular end-diastolic pressure DISCUSSION AND RECOMMENDATION: Abnormal stress test is probably due to small vessel disease. No intervention is warranted Anesthesia Type: Conscious Sedation Estimated blood loss (mL): 5 ml Contrast Amount: 20 ml Total Radiation Dose: 138 mGy Post-Procedure Diagnosis Post-operative diagnosis: Chest pain Coronary artery disease Hypertension Hyperlipidemia MI BAILEY MD Feb 08, 2023 14:43
== END 2023-02-08 17:15 | disposition home or self-care (01) ==
LOC: CATH 10:32 → SDC 14:52 → CATH 17:15
PROVIDERS: ATTEND Internal Medicine Cardiovascular Disease
DX: I25.10 Atherosclerotic heart disease of native coronary artery without angina pectoris (principal); I10 Essential (primary) hypertension; I44.30 Unspecified atrioventricular block; I65.23 Occlusion and stenosis of bilateral carotid arteries; E78.5 Hyperlipidemia, unspecified; M79.605 Pain in left leg; J43.9 Emphysema, unspecified; R00.0 Tachycardia, unspecified; J40 Bronchitis, not specified as acute or chronic; E78.2 Mixed hyperlipidemia; Z28.310 Unvaccinated for COVID-19; Z79.899 Other long term (current) drug therapy; Z87.891 Personal history of nicotine dependence
CPT/HCPCS: 36415; 71045; 80053; 80061; 81000; 85027; 85610; 85730; 87081; 93005; 93458